=== PATIENT | female | born 1945 | race Caucasian/White ===

== ENCOUNTER 2021-03-16 16:31 | Emergency (ER) | payer MEDICARE, OTHER ==
[~2021-03-16] VITALS: Ht 152.4 cm; Wt 49.2 kg
[2021-03-16 16:58] VITALS: BP 164/73
--- NOTE | 2021-03-16 17:19 | EKG ---
[address] [address] Test Date: 2021-03-16 Test Time: 16:53:25 Pat Name: VIPIN DE SANTIAGO Department: Room: Gender: F Box Shook Patcher: FLEX : 1945 Requested By: JI HERNANDEZ Order Number: [id number] Reading MD: Ash Pascal MD Measurements Intervals [place] Rate: 92 P: 50 AL: 164 QRS: -71 QRSD: 92 T: 62 QT: 342 QTc: 428 Interpretive Statements SINUS RHYTHM ABNORMAL LEFT AXIS DEVIATION LEFT ANTERIOR FASCICULAR BLOCK QRS(T) CONTOUR ABNORMALITY CONSISTENT WITH ANTEROSEPTAL INFARCT PROBABLY OLD ABNORMAL ECG Electronically Signed On 03-17-2021 9:02:07 CDT by Ash Pascal MD
[2021-03-16 17:51] LABS: BASO # 0.1 x10^3/uL (0.0-0.2); BASO % 1 % (0-3); EOS # 0.1 x10^3/uL (0.0-0.7); EOS % 1 % (0-3); HEMATOCRIT 38.2 % (36.0-47.0); HEMOGLOBIN 12.6 g/dL (12.0-15.5); LYMPH % 17 % (24-48); MEAN CORPUSCULAR HEMOGLOBIN 27 pg (25-35); MEAN CORPUSCULAR HGB CONC 33 g/dL (31-37); MEAN CORPUSCULAR VOLUME 83 fL (79-100); MONO # 0.4 x10^3/uL (0.0-1.1); MONO % 7 % (0-9); NEUT # 4.3 x10^3uL (1.8-7.7); NEUT % 73 % (31-73); PLATELET COUNT 218 x10^3/uL (140-400); RED BLOOD COUNT 4.63 x10^6/uL (3.50-5.40); RED CELL DISTRIBUTION WIDTH 15.8 % (11.5-14.5); WHITE BLOOD COUNT 5.8 x10^3/uL (4.0-11.0)
[2021-03-16 17:58] LABS: CALCIUM 8.7 mg/dL (8.5-10.1); CREATININE 0.8 mg/dL (0.6-1.0); GFR 69.7; POTASSIUM 3.6 mmol/L (3.5-5.1)
[2021-03-16 18:04] LABS: ALBUMIN 3.6 g/dL (3.4-5.0); ALBUMIN/GLOBULIN RATIO 1.1 (1.0-1.7); TOTAL BILIRUBIN 0.3 mg/dL (0.2-1.0)
--- NOTE | 2021-03-16 18:29 | PHYS DOC ---
Past History Past Surgical History: No Surgical History (JI HERNANDEZ APRN) General Adult EDM: Chief Complaint: ALTERED MENTAL STATUS HPI: HPI: Patient is a 76-year-old female who presents with brother for medical clearance. Brother states "she is not sleeping at night and has had numerous falls". Patient has history of MR and cerebral palsy. Denies SI or HI or aggressive behavior. "Dr. Madrid is her PCP who is also the director at [facility], he said she has to have a medical clearance prior to being placed in a [facility]". Brother states that he is unable to take care of her any longer. (JI HERNANDEZ APRN) Review of Systems: Review of Systems: Constitutional: Denies fever or chills Eyes: Denies change in visual acuity HENT: Denies nasal congestion or sore throat Respiratory: Denies cough or shortness of breath Cardiovascular: Denies chest pain or edema GI: Denies abdominal pain, nausea, vomiting, bloody stools or diarrhea : Denies dysuria Musculoskeletal: Denies back pain or joint pain Integument: Denies rash Neurologic: Denies headache, focal weakness or sensory changes Endocrine: Denies polyuria or polydipsia Lymphatic: Denies swollen glands Psychiatric: Denies depression or anxiety (JI HERNANDEZ APRN) Allergies: Allergies: Allergies Coded Allergies Type Severity Reaction Last Updated Verified No Known Drug Allergies 03/16/21 No (JI HERNANDEZ APRN) Physical Exam: PE: Constitutional: Well developed, well nourished, no acute distress, non-toxic appearance. [] HENT: Normocephalic, atraumatic, bilateral external ears normal, oropharynx moist, no oral exudates, nose normal. [] Eyes: PERRLA, EOMI, conjunctiva normal, no discharge. [] Neck: Normal range of motion, no tenderness, supple, no stridor. [] Cardiovascular:Heart rate regular rhythm, no murmur [] Lungs & Thorax: Bilateral breath sounds clear to auscultation [] Abdomen: Bowel sounds normal, soft, no tenderness, no masses, no pulsatile masses. [] Skin: Warm, dry, no erythema, no rash. [] Back: No tenderness, no CVA tenderness. [] Extremities: No tenderness, no cyanosis, no clubbing, ROM intact, no edema. [] Neurologic: Alert and oriented X 3, normal motor function, normal sensory function, no focal deficits noted. [] Psychologic: Affect normal, judgement normal, mood normal. [] (JI HERNANDEZ APRN) Current Patient Data: Labs: Laboratory Tests Test 03/16/21 17:25 White Blood Count 5.8 x10^3/uL (4.0-11.0) Red Blood Count 4.63 x10^6/uL (3.50-5.40) Hemoglobin 12.6 g/dL (12.0-15.5) Hematocrit 38.2 % (36.0-47.0) Mean Corpuscular Volume 83 fL (79-100) Mean Corpuscular Hemoglobin 27 pg (25-35) Mean Corpuscular Hemoglobin Concent 33 g/dL (31-37) Red Cell Distribution Width 15.8 % (11.5-14.5) H Platelet Count 218 x10^3/uL (140-400) Neutrophils (%) (Auto) 73 % (31-73) Lymphocytes (%) (Auto) 17 % (24-48) L Monocytes (%) (Auto) 7 % (0-9) Eosinophils (%) (Auto) 1 % (0-3) Basophils (%) (Auto) 1 % (0-3) Neutrophils # (Auto) 4.3 x10^3uL (1.8-7.7) Lymphocytes # (Auto) 1.0 x10^3/uL (1.0-4.8) Monocytes # (Auto) 0.4 x10^3/uL (0.0-1.1) Eosinophils # (Auto) 0.1 x10^3/uL (0.0-0.7) Basophils # (Auto) 0.1 x10^3/uL (0.0-0.2) Sodium Level 140 mmol/L (136-145) Potassium Level 3.6 mmol/L (3.5-5.1) Chloride Level 103 mmol/L (98-107) Carbon Dioxide Level 29 mmol/L (21-32) Anion Gap 8 (6-14) Blood Urea Nitrogen 23 mg/dL (7-20) H Creatinine 0.8 mg/dL (0.6-1.0) Estimated GFR (Cockcroft-Gault) 69.7 BUN/Creatinine Ratio 29 (6-20) H Glucose Level 106 mg/dL (70-99) H Calcium Level 8.7 mg/dL (8.5-10.1) Total Bilirubin 0.3 mg/dL (0.2-1.0) Aspartate Amino Transferase (AST) 17 U/L (15-37) Alanine Aminotransferase (ALT) 30 U/L (14-59) Alkaline Phosphatase 67 U/L (46-116) Total Protein 7.0 g/dL (6.4-8.2) Albumin 3.6 g/dL (3.4-5.0) Albumin/Globulin Ratio 1.1 (1.0-1.7) Vital Signs: Vital Signs Date Time Temp Pulse Resp B/P (MAP) Pulse Ox O2 Delivery O2 Flow Rate FiO2 03/16/21 16:58 97.7 94 20 164/73 96 Room Air (JI HERNANDEZ APRN) EKG: EKG: Sinus rhythm. Heart rate 92 bpm. [] (JI HERNANDEZ APRN) Radiology/Procedures: Radiology/Procedures: [] (JI HERNANDEZ APRN) Heart Score: C/O Chest Pain: No Risk Factors: Risk Factors: DM, Current or recent (<one month) smoker, HTN, HLP, family histo ry of CAD, obesity. Risk Scores: Score 0 - 3: 2.5% MACE over next 6 weeks - Discharge Home Score 4 - 6: 20.3% MACE over next 6 weeks - Admit for Clinical Observation Score 7 - 10: 72.7% MACE over next 6 weeks - Early Invasive Strategies (JI HERNANDEZ APRN) Course & Med Decision Making: Course & Med Decision Making Pertinent Labs and Imaging studies reviewed. (See chart for details) [] 76-year-old female presents for medical clearance for admission to [facility]. Brother states that patient has had multiple falls recently and trouble with insomnia. Denies being on any medication to help with insomnia. All labs unremarkable. EKG shows sinus rhythm. Heart rate 92 bpm hemodynamically stable. UA positive for nitrates and leuks. Sending patient home on Keflex to treat UTI. Yajaira from [facility] team spoke with brother and patient. Patient is not qualified for [facility]. Yajaira from [facility] team created a safety plan for patient. Explained to brother patient was medically cleared, but not eligible for [facility]. Patient given copy of patient labs and safety plan to provide to PCP, Dr. Madrid.Brother needs to call [facility] and Dr. Madrid to get patient placed at [facility] Patient given trazodone prior to discharge to help with insomnia. (JI HERNANDEZ APRN) Course & Med Decision Making Did not see or evaluate patient. Did not discuss patient with RN FIRST ASSISTANT. Agree with RN FIRST ASSISTANT's work-up and disposition per note. (LONG NEWBERRY MD) Dragon Disclaimer: Dragtyrel Disclaimer: This electronic medical record was generated, in whole or in part, using a voice recognition dictation system. (JI HERNANDEZ APRN) Departure Departure: Impression: Primary Impression: Medical clearance for psychiatric admission Disposition: HOME / SELF CARE / HOMELESS Condition: STABLE Referrals: ERA MADRID MD (PCP) Patient Instructions: Medical Screening Exam Additional Instructions: You were seen in the emergency room for medical clearance. Unfortunately, your sister is not eligible for admission to [facility]. But she is medically cleared and able to be admitted by Dr. Madrid to a nursing care facility. Please call Dr. Madrid to discuss further. I am providing you with labs and safety plan that was created while you were in the emergency room from our PAT team. You were also treated with fosfomycin for a UTI. I am also giving you 1 dose of trazodone prior to discharge to help with insomnia for tonight. EMERGENCY DEPARTMENT GENERAL DISCHARGE INSTRUCTIONS Thank you for coming to [facility] (ED) today and trusting us with you care. We trust that you had a positivie experience in our Emergency Department. If you wish to speak to the department management, you may call the director at [phone]. YOUR FOLLOW UP INSTRUCTIONS ARE FOLLOWS: 1. Do you have a private Doctor? If you do not have a private doctor, please ask for a resource list of physicians or clinics that may be able to assist you with follow up care. 2. The Emergency Physician has interpreted your x-rays. The X-Ray specialist will also review them. If there is a change in the findings, you will be notified in 48 hours when at all possible. 3. A lab test or culture has been done, your results will be reviewed and you will be notified if you need a change in treatment. ADDITIONAL INSTRUCTIONS AND INFORMATION: 1. Your care today has been supervised by a physician who is specially trained in emergency care. Many problems require more than one evaluation for a complete diagnosis and treatment. We recommend that you schedule your follow up appointment as recommended to ensure complete treatment of you illness or injury. If you are unable to obtain follow up care and continue to have a problem, or if your condition worsens, we recommend that you return to the ED. 2. We are not able to safely determine your condition over the phone nor are we able to give sound medical advice over the phone. For these safety reasons, if you call for medical advice we will ask you to come to the ED for further evaluation. 3. If you have any questions regarding these discharge instructions please call the ED at [phone]. SAFETY INFORMATION: In the interest of safety, wellness, and injury prevention; we encourage you to wear your sealbelt, if you smoke; quite smoking, and we encourage family to use a protective helmet for bicycling and other sporting events that present an increased risk for head injury. IF YOUR SYMPTOMS WORSEN OR NEW SYMPTOMS DEVELOP, OR YOU HAVE CONCERNS ABOUT YOUR CONDITION; OR IF YOUR CONDITION WORSENS WHILE YOU ARE WAITING FOR YOUR FOLLOW UP APPOINTMENT; EITHER CONTACT YOUR PRIMARY CARE DOCTOR, THE PHYSICIAN WHOSE NAME AND NUMBER YOU WERE GIVEN, OR RETURN TO THE ED IMMEDIATELY. JI HERNANDEZ APRN Mar 16, 2021 18:29 LONG NEWBERRY MD Mar 16, 2021 23:33
[2021-03-16 18:32] LABS: BILIRUBIN,URINE NEG (NEG); CLARITY,URINE CLOUDY; COLOR,URINE YELLOW; GLUCOSE,URINE NEG (NEG); NITRITE,URINE POS (NEG); UROBILINOGEN,URINE 0.2 mg/dL (0.2 mg/dL)
[2021-03-16 18:33] LABS: BACTERIA,URINE MANY /HPF (0-FEW); WBC,URINE >40 /HPF (0-4)
[2021-03-16 18:34] LABS: SQUAMOUS EPITHELIAL CELL,UR MANY /LPF
[2021-03-16] MEDS: FOSFOMYCIN TROMETHAMINE 3 GM PACKET PO ONE (19:25)
[2021-03-16] MEDS: traZODone 50 MG TABLET. PO ONE (19:25)
== END 2021-03-16 19:28 | disposition home or self-care (01) ==
LOC: ER 16:31
DX: G47.00 Insomnia, unspecified (principal); Z13.30 Encounter for screening examination for mental health and behavioral disorders, unspecified; Z20.822 Contact with and (suspected) exposure to COVID-19
CPT/HCPCS: 36415; 80053; 81001; 85025; 87086; 87426; 93005; 99284; C9803; U0003

== ENCOUNTER 2021-09-06 07:30 | Emergency (ER) | payer MEDICARE, OTHER ==
[~2021-09-06] VITALS: Ht 152.4 cm; Wt 48.6 kg
--- NOTE | 2021-09-06 07:39 | PHYS DOC ---
Past History Past Surgical History: No Surgical History Alcohol Use: None Adult General Chief Complaint Chief Complaint: ALTERED MENTAL STATUS HPI HPI Patient is a 76 year old female who presents with head injury. Patient is referred to this emergency department today from the alf where she normally resides. [facility] staff had concern that the patient seemed to be acting differently compared to normal. She reportedly did not sleep over the last 2 nights. Also states that she had a fall 3 days ago where she sustained minor injury to the back of the head. At baseline, the patient has developmental delay. No immediate history is available from her. She denies pain. Review of Systems Review of Systems No review of systems is available as the patient cannot answer these questions. All other systems were reviewed and found to be within normal limits, except as documented in this note. Allergies Allergies Allergies Coded Allergies Type Severity Reaction Last Updated Verified No Known Drug Allergies 03/16/21 No Physical Exam Physical Exam Constitutional: Well developed, well nourished female in no HENT: minor abrasion and hematoma of the scalp over the superior occipital area. bilateral external ears normal, TM's normal, oropharynx moist, no oral exudates, nose normal Eyes: PERRLA, EOMI, conjunctiva normal Neck: Normal range of motion, no tenderness Cardiovascular:Heart rate regular rhythm Lungs & Thorax: Bilateral breath sounds clear to auscultation Abdomen: Bowel sounds normal, soft, no tenderness Skin: Warm, dry, no erythema, no rash. no trauma other than noted above. Skin over back and sacral area is normal Back: No tenderness Extremities: No visible trauma. No pain with firm palpation of all long bones or passive ROM across all major joints Neurologic: Alert and oriented to name only. Moves all extremities. protecting airway. no facial asymmetry. Psychologic: unclear baseline but she is awake, alert, answering simple questions. EKG EKG EKG completed and interpreted by ER physician. No STEMI is present. Heart rate is 92. Radiology/Procedures Radiology/Procedures [] Heart Score C/O Chest Pain: No HEART Score for Chest Pain: HEART Score for Chest Pain Response (Comments) Value History Slighlty/Non-Suspicious 0 ECG Normal 0 Total 0 Risk Factors: Risk Factors: DM, Current or recent (<one month) smoker, HTN, HLP, family history of CAD, obesity. Risk Scores: Risk Factors: DM, Current or recent (<one month) smoker, HTN, HLP, family history of CAD, obesity. Course & Med Decision Making Course & Med Decision Making Pertinent Labs and Imaging studies reviewed. (See chart for details) 07:35: Ms. Lawson is seen and examined on arrival to her room. Arrives via EMS. Minor scalp trauma which is reportedly from several days earlier. Otherwise normal physical examination. [facility] staff reports change in her mental status and labs, EKG, CT ordered. Will obtain UA sample via striaght cath. 08:35: All results are reviewed. Patient has no acute findings on her imaging. She does have significant pyuria. [facility] staff reports she had history of UTI. Today, she is given Rocephin [address] her on Macrobid. Only available urine culture was from March 2021 and was polymicrobial. She is stable for return to the alf today. EKG normal. Troponin not elevated. There is a family member at the bedside who is her DPOA. All of his questions were answered and he is agreeable to plan of care. Dragon Disclaimer Dragon Disclaimer This electronic medical record was generated, in whole or in part, using a voice recognition dictation system. Departure Departure: Impression: Primary Impression: UTI (urinary tract infection) Disposition: HOME / SELF CARE / HOMELESS Condition: GOOD Referrals: ERA ASHBY MD (PCP) Patient Instructions: Urinary Tract Infection Scripts Nitrofurantoin Monohyd/M-Cryst (MACROBID 100 MG CAPSULE) 100 Mg Capsule 1 CAP PO BID for 7 Days, #14 CAP 0 Refills Prov: MICHELLE ABDUL DO 09/06/21 MICHELLE ABDUL DO Sep 06, 2021 07:39
[2021-09-06 08:06] VITALS: BP 145/71
[2021-09-06 08:06] LABS: BASO # 0.1 x10^3/uL (0.0-0.2); BASO % 1 % (0-3); EOS % 1 % (0-3); HEMATOCRIT 36.2 % (36.0-47.0); HEMOGLOBIN 11.7 g/dL (12.0-15.5); LYMPH % 15 % (24-48); MEAN CORPUSCULAR HEMOGLOBIN 28 pg (25-35); MEAN CORPUSCULAR HGB CONC 32 g/dL (31-37); MEAN CORPUSCULAR VOLUME 87 fL (79-100); MONO # 0.5 x10^3/uL (0.0-1.1); MONO % 7 % (0-9); NEUT # 5.3 x10^3uL (1.8-7.7); NEUT % 77 % (31-73); PLATELET COUNT 200 x10^3/uL (140-400); RED BLOOD COUNT 4.18 x10^6/uL (3.50-5.40); RED CELL DISTRIBUTION WIDTH 15.6 % (11.5-14.5); WHITE BLOOD COUNT 6.9 x10^3/uL (4.0-11.0)
[2021-09-06 08:17] LABS: CALCIUM 8.1 mg/dL (8.5-10.1); CREATININE 0.8 mg/dL (0.6-1.0); GFR 69.7; POTASSIUM 3.6 mmol/L (3.5-5.1)
[2021-09-06 08:22] LABS: BACTERIA,URINE MANY /HPF (0-FEW); CLARITY,URINE CLEAR; COLOR,URINE YELLOW; GLUCOSE,URINE NEG (NEG); NITRITE,URINE POS (NEG); SQUAMOUS EPITHELIAL CELL,UR MOD /LPF; UROBILINOGEN,URINE 0.2 mg/dL (0.2 mg/dL)
[2021-09-06 08:23] LABS: WBC,URINE >40 /HPF (0-4)
--- NOTE | 2021-09-06 08:27 | RAD ---
Exam Date: 09/06/2021 8:[address] HEAD AND C-SPINE WO Indication: Reason: fall, occipital hematoma / Spl. Instructions: / History: . One or more of the following dose reduction techniques were utilized: *Automated exposure control (AEC) *Adjustment of mA and/or kV according to patient size *Use of iterative reconstruction technique *CT scan done according to ALARA, or ALARA/IMAGE GENTLY EXAMINATION: CT OF THE HEAD WITHOUT CONTRAST INDICATION: Trauma, head injury, headache; TECHNIQUE: Noncontrast helical axial CT images of the head were obtained. FINDINGS: The ventricles and sulci are normal for the patient's stated age. There is no evidence of acute int racranial hemorrhage, extra-axial collection, mass effect, midline shift, or acute territorial infarc t. No lesion of the skull base or the calvarium is seen. The visualized paranasal sinuses, mastoid ai r cells, and orbits are normal in appearance. IMPRESSION: No evidence for acute intracranial abnormality. EXAMINATION: CT OF THE CERVICAL SPINE WITHOUT CONTRAST Clinical Indication: Cervical spine pain after trauma Technique: Thin cut helical axial CT images through the cervical spine were obtained without contrast on a multi-detector CT scanner. Source data was then reconstructed into sagittal and coronal planes. Findings: Motion artifact limits evaluation. Alignment is maintained without spondylolisthesis. Vertebral body heights are maintained without acute fracture. Multilevel degenerative changes are not ed. No significant prevertebral soft tissue swelling is demonstrated. No severe osseous central canal stenosis is seen. Impression: No evidence of acute cervical spine fracture or subluxation. Electronically signed by: Tyshawn Rodriguez MD (09/06/2021 8:24 AM) [id number]
--- NOTE | 2021-09-06 08:31 | EKG ---
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
[2021-09-06] MEDS ORDERED: IV NORMAL SALINE 50ML 50 ML ONE (08:35)
[2021-09-06] MEDS ORDERED: cefTRIAXone SODIUM 1 GM VIAL ONE (08:35)
[2021-09-06] MEDS ORDERED: NITR100C62 PO (08:37)
[2021-09-06] MEDS ORDERED: LIDOCAINE 2%/EPI 1:100,000 20 ML VIAL. ONE (08:42)
[2021-09-06] MEDS ORDERED: LIDOCAINE 2%/EPI 1:100,000 20 ML VIAL. IJ ONE (09:00)
== END 2021-09-06 09:50 | disposition home or self-care (01) ==
LOC: ER 07:30
DX: S01.01XA Laceration without foreign body of scalp, initial encounter (principal); N39.0 Urinary tract infection, site not specified; W18.39XA Other fall on same level, initial encounter; Y93.89 Activity, other specified; Y92.89 Other specified places as the place of occurrence of the external cause; Y99.8 Other external cause status
CPT/HCPCS: 12001; 36415; 70450; 72125; 80048; 81001; 84484; 85025; 87077; 87086; 87186; 93005; 96365; 99285; J0696

== ENCOUNTER 2021-09-08 02:37 | Emergency (ER) | payer MEDICARE, OTHER ==
[~2021-09-08] VITALS: Ht 152.4 cm; Wt 49.0 kg
[~2021-09-08 02:37] MED LIST: NITR100C62 PO
--- NOTE | 2021-09-08 02:47 | PHYS DOC ---
Past History Additional Past Medical Histor: cerebral palsy Past Surgical History: Other Alcohol Use: None Adult General Chief Complaint Chief Complaint: MECHANICAL FALL HPI HPI Patient is a 76-year-old female with a past medical history of dementia and other comorbidities who [facility] at a prison who presents via EMS after a fall. This is her second such fall in the last couple of days. Her first visit she had a UTI and was treated with a dose of Rocephin and some Macrobid. She had some sutures placed in posterior scalp. This was a witnessed fall at the prison with no loss of consciousness. Denies any recent travels, fevers, known illnesses, abdominal pain, nausea, vomiting, diarrhea. States they picked her up off the floor and put her in a chair. Review of Systems Review of Systems Review of systems otherwise unremarkable except noted in HPI Allergies Allergies Allergies Coded Allergies Type Severity Reaction Last Updated Verified No Known Drug Allergies 03/16/21 No Physical Exam Physical Exam Constitutional: Well developed, well nourished, no acute distress, non-toxic appearance. [] HENT: 1 cm linear superficial laceration on the right parietal scalp, bleeding controlled, bilateral external ears normal, no hemotympanum, oropharynx moist, no oral exudates, nose normal. [] Eyes: PERRLA, EOMI, conjunctiva normal, no discharge. [] Neck: Normal range of motion, no tenderness, supple, no stridor. [] Cardiovascular:Heart rate regular rhythm, no murmur [] Lungs & Thorax: No respiratory distress Abdomen: soft, appears to be tender generally in the abdomen with no rebound or guarding,, no masses, no pulsatile masses. [] Skin: Warm, dry, no erythema, no rash. [] Back: No apparent midline tenderness, step-offs, bruising or deformities noted Extremities: Neurovascular exam intact, no tenderness, no bruising or swelling, no cyanosis, no clubbing, ROM intact, no edema. [] Neurologic: Alert and oriented to baseline per EMS and facility staff, extremity, response to sensation of touch on all extremities, face and neck, no obvious focal neurologic deficits EKG EKG [] Radiology/Procedures Radiology/Procedures [] Heart Score C/O Chest Pain: No Risk Factors: Risk Factors: DM, Current or recent (<one month) smoker, HTN, HLP, family history of CAD, obesity. Risk Scores: Risk Factors: DM, Current or recent (<one month) smoker, HTN, HLP, family history of CAD, obesity. Course & Med Decision Making Course & Med Decision Making Patient is a 76-year-old female who presents from her prison after a fall Vital signs notable for hypertension. Physical exam noted above. Given pain medicine. Repeated Rocephin dose for UTI. Scalp laceration cleaned with hydrogen peroxide. Sealed with Dermabond. CT of the head and neck with no acute new osseous abnormalities CT of the abdomen and pelvis with no new acute findings. Given EMS/facility a copy of the CT report and advised to have a follow-up CT in 3 months and to make primary care physician aware. Patient with prescription for nitrofurantoin for continued management of her urinary tract infection. Started on Augmentin for possible infectious process in the lungs however likely more inflammatory/mucous plugging with neoplasm and possibility. Patient stable for discharge back to prison. [] Dragon Disclaimer Dragon Disclaimer This electronic medical record was generated, in whole or in part, using a voice recognition dictation system. Departure Departure: Impression: Primary Impression: Fall Additional Impressions: Scalp laceration Respiratory infection Abnormal CT scan, chest Disposition: HOME / SELF CARE / HOMELESS Condition: STABLE Referrals: ERA ASHBY MD (PCP) Patient Instructions: Laceration Care, Adult Additional Instructions: Thank you for coming to the emergency department tonight and allowing us to take care of you. Please read all the attached information carefully to go over things we discussed. Please use Tylenol, ibuprofen and ice as needed for this patient's pain needs. Please be sure to continue her prescription given to her at her first ED visit for her urinary tract infection and make sure she stays well-hydrated as older people lose the thirst mechanism. Please be sure she eats at least 3 nutritious meals a day and try to get in a One-A-Day vitamin. Please be sure to have her follow-up with her primary care physician as soon as possible to discuss recent ED visits and care at the nursing facility. Please be sure she takes her Augmentin daily for possible respiratory infection. Disc ussions need to be had about the appropriateness of her current living situation being allowed to fall twice over 1 to 2 days requiring emergency department visits. Please return her to the emergency department immediately with new or concerning symptoms. Scripts Amoxicillin/Potassium Clav (AMOX TR-K CLV 875-125 MG TAB) 1 Each Tablet 1 TAB PO BID for respiratory infxn for 10 Days, #20 TAB Prov: LONG NEWBERRY MD 09/08/21 Problem Qualifiers LONG NEWBERRY MD Sep 08, 2021 02:47
[2021-09-08] MEDS ORDERED: cefTRIAXone IM 1 GM VIAL IM ONE (03:00)
--- NOTE | 2021-09-08 04:13 | RAD ---
EXAM: CT head and cervical spine without contrast INDICATION: Fall, hit head COMPARISON: CT head and C-spine 09/06/2021 TECHNIQUE: Axial CT imaging through the head and cervical spine without intravenous contrast. Sagitta l and coronal reformats were obtained. One or more of the following individualized dose reduction techniques were utilized for this examinat ion: 1. Automated exposure control 2. Adjustment of the mA and/or kV according to patient size 3. Use of iterative reconstruction technique. FINDINGS: CT head: The ventricles and sulci are prominent. Madden-white matter differentiation is maintained. No intracran ial hemorrhage, acute infarct, or mass lesion. Skull and scalp are intact. Paranasal sinuses and mast oids are clear. Globes and orbits are intact. CT cervical spine: No acute fracture. Alignment is normal. There is moderate disc space narrowing at C5-C6 and C6-C7, mi ld disc space narrowing elsewhere. Small anterior osteophytes, greatest at C4-C5 and C5-C6. There is thoracic kyphosis. Unchanged mild T1 and T2 compression deformities. Mild T3 compression deformity. T here is moderate to severe right and moderate left foraminal narrowing due to uncovertebral joint pro liferation C5-C6 and C6-C7. Prevertebral soft tissue is normal. There are calcifications in the carot id bulbs. Lung apices are clear. IMPRESSION: 1. No acute intracranial abnormality. 2. No acute osseous abnormality cervical spine. 3. Mild compression deformities of T1, T2, and T3, age indeterminate but may be old. The T1 and T2 co mpression deformities are unchanged from CT C-spine 09/06/2021. The T3 vertebral body was not included in the [id number] on that exam. Electronically signed by: Laura Dutta MD (09/08/2021 4:11 AM) [facility]
--- NOTE | 2021-09-08 04:35 | RAD ---
EXAM: CT CHEST, ABDOMEN, AND PELVIS WITHOUT CONTRAST INDICATION: Fall, chest and abdomen tenderness, difficulty holding still COMPARISON: None TECHNIQUE: Helical CT imaging performed of the chest, abdomen and pelvis without the use of intraveno us contrast. Sagittal and coronal reformats were obtained. One or more of the following individualized dose reduction techniques were utilized for this examinat ion: 1. Automated exposure control 2. Adjustment of the mA and/or kV according to patient size 3. Use of iterative reconstruction technique. FINDINGS: CHEST: Thyroid gland and thoracic inlet: Normal. Heart and great vessels: The heart is normal in size. There are coronary artery calcifications. Mediastinum and roney: No lymphadenopathy. There is a calcified hilar lymph node. Mild esophageal wall thickening. Lungs and pleura: There is a nodule in the right middle lobe measuring 1.0 cm (image 53, series 2. Ad jacent small tree-in-bud nodules and possible mucous plugging (image 55, series 2). There is a calcif ied granuloma in the right lower lobe. No pleural effusion or pneumothorax. Chest wall and axillae: No axillary lymphadenopathy. Bones: Mild compression deformities of T1 and T2, age indeterminate but may be chronic. No definite T 3 compression deformity. No acute fracture.. ABDOMEN AND PELVIS: Liver: Normal. Gallbladder/Biliary Tree: Surgical changes of cholecystectomy. Bile ducts are normal. Pancreas: Normal. Spleen: Normal. Adrenal Glands: Mild left adrenal gland thickening. Right adrenal gland is normal.. Kidneys/Ureters/Bladder: The kidneys are lobulated suspicious for underlying poly-cystic kidney disea se, not well evaluated on noncontrast exam. Some of the cysts on the left containing layering calcifi cations. There is left nephrolithiasis with a few small calculi. No hydronephrosis. Ureters and bladd er are normal. Reproductive Organs: There are multiple partially calcified fibroids throughout the uterus. No adnexa l mass. Stomach, small bowel, and colon: Stomach is normal. There is no small bowel obstruction. There is sig moid diverticulosis. The appendix is not clearly identified. Vasculature: No aortic aneurysm. Mild calcified aortoiliac atherosclerosis. Lymph Nodes: No lymphadenopathy. Peritoneum and retroperitoneum: No free fluid or free air. Bones: No acute osseous abnormality. Mild dextroscoliosis of the thoracolumbar spine. Other: Small fat-containing umbilical hernia containing an surgical staple. IMPRESSION: 1. No acute abnormality of the chest, abdomen, or pelvis. 2. Mild compression deformities of T1 and T2, age indeterminate but favored to be chronic. 3. 1 cm nodule in the right middle lobe. This may be infectious/inflammatory as there are some adjac ent small tree-in-bud nodules and possible mucous plugging, however neoplasm is possible. Recommend f ollow-up CT in 3 months to ensure stability. PET/CT or biopsy could also be obtained. 4. Suspected polycystic kidney disease. Left nephrolithiasis. 5. Multiple calcified fibroids in the uterus. Electronically signed by: Laura Dutta MD (09/08/2021 4:32 AM) [facility]
[2021-09-08] MEDS ORDERED: AMOX1TAB11 PO (04:41)
[2021-09-08] MEDS ORDERED: KETOROLAC 15 MG/ML VIAL. IM ONE (05:00)
[2021-09-08 05:10] VITALS: BP 122/62
== END 2021-09-08 05:15 | disposition home or self-care (01) ==
LOC: ER 02:37
DX: S01.01XD Laceration without foreign body of scalp, subsequent encounter (principal); J98.8 Other specified respiratory disorders; R93.1 Abnormal findings on diagnostic imaging of heart and coronary circulation; W18.39XD Other fall on same level, subsequent encounter
CPT/HCPCS: 12001; 70450; 71250; 72125; 74176; 96372; 99285; J0696; J1885; J3010

== ENCOUNTER 2021-10-10 15:26 | Inpatient (IN) | payer MEDICARE, OTHER ==
[~2021-10-10] VITALS: Ht 152.4 cm; Wt 49.4 kg
[~2021-10-10 15:26] MED LIST changes: +AMOX1TAB11 PO
[2021-10-10] MEDS ORDERED: NYST15PO9 TP (16:15)
[2021-10-10] MEDS ORDERED: DIVA125T PO (16:15)
[2021-10-10] MEDS ORDERED: LORA-254 PO (16:15)
[2021-10-10] MEDS ORDERED: DULA0.75 SQ (16:15)
[2021-10-10] MEDS ORDERED: ROSUVASTATIN CA10 MG PO (16:15)
[2021-10-10] MEDS ORDERED: METF500T16 PO (16:15)
[2021-10-10] MEDS ORDERED: LISI40TA6 PO (16:15)
[2021-10-10] MEDS ORDERED: METHYL SALICYLATE/MENTHOL TOPICAL OINTMENT 57GM TUBE. TP PRN (16:30)
[2021-10-10] MEDS ORDERED: MAG HYDROX/AL HYDROX/SIMETH 30 ML ORAL.SUSP PO PRN (16:30)
[2021-10-10] MEDS ORDERED: MAGNESIUM HYDROXIDE 2,400 MG/30 ML ORAL.SUSP. PO PRN (16:30)
[2021-10-10] MEDS ORDERED: NYSTATIN TOPICAL POWDER 15GM BOTTLE. TP PRN (16:45)
[2021-10-10 16:46] VITALS: BP 122/75
[2021-10-10] MEDS: metFORMIN 500 MG TABLET PO SCH (17:28)
[2021-10-10] MEDS: DIVALPROEX SODIUM 125 MG TABLET.DR. PO SCH (21:08)
[2021-10-10] MEDS: ATORVASTATIN CALCIUM 20 MG TABLET PO SCH (21:08)
--- NOTE | 2021-10-10 21:10 | EKG ---
[address] [address] Test Date: 2021-10-10 Test Time: 19:43:46 Pat Name: VIPIN DE SANTIAGO Department: Room: [address] [place] [address] Gender: F [employer] Supervisor: FRANCESCO : 1945 Requested By: RAMOS HORTA Order Number: [id number] Reading MD: Measurements Intervals [place] Rate: 96 P: 59 NV: 142 QRS: -80 QRSD: 86 T: 72 QT: 338 QTc: 433 Interpretive Statements SINUS RHYTHM ABNORMAL LEFT AXIS DEVIATION R-S TRANSITION ZONE IN V LEADS DISPLACED TO THE LEFT LEFT ANTERIOR FASCICULAR BLOCK T ABNORMALITY IN HIGH LATERAL LEADS ABNORMAL ECG RI6.01 No previous ECG available for comparison
[2021-10-10 21:18] LABS: BASO % 1 % (0-3); EOS # 0.1 x10^3/uL (0.0-0.7); EOS % 1 % (0-3); HEMOGLOBIN 11.5 g/dL (12.0-15.5); LYMPH # 1.3 x10^3/uL (1.0-4.8); LYMPH % 16 % (24-48); MEAN CORPUSCULAR HEMOGLOBIN 28 pg (25-35); MEAN CORPUSCULAR HGB CONC 33 g/dL (31-37); MEAN CORPUSCULAR VOLUME 86 fL (79-100); MONO # 0.4 x10^3/uL (0.0-1.1); MONO % 6 % (0-9); NEUT # 6.2 x10^3uL (1.8-7.7); NEUT % 77 % (31-73); PLATELET COUNT 203 x10^3/uL (140-400); RED BLOOD COUNT 4.09 x10^6/uL (3.50-5.40)
[2021-10-10 21:36] LABS: ALBUMIN 3.4 g/dL (3.4-5.0); ALBUMIN/GLOBULIN RATIO 0.9 (1.0-1.7); ALK PHOS 91 U/L (46-116); ALT (SGPT) 14 U/L (14-59); ANION GAP 10 (6-14); AST (SGOT) 12 U/L (15-37); BLOOD UREA NITROGEN 15 mg/dL (7-20); BUN/CREATININE RATIO 17 (6-20); CALCIUM 8.7 mg/dL (8.5-10.1); CARBON DIOXIDE 27 mmol/L (21-32); CHLORIDE 102 mmol/L (98-107); CREATININE 0.9 mg/dL (0.6-1.0); GFR 60.9; GLUCOSE 142 mg/dL (70-99); MAGNESIUM 1.3 mg/dL (1.8-2.4); POTASSIUM 4.1 mmol/L (3.5-5.1); SODIUM 139 mmol/L (136-145); TOTAL BILIRUBIN 0.4 mg/dL (0.2-1.0); TOTAL PROTEIN 7.1 g/dL (6.4-8.2)
--- NOTE | 2021-10-10 21:45 | PDOC ---
Exam Note: Zana Note: Please also refer to the separate dictated note~for this date of service dictated separately.~Patient seen individually. Discussed the patient with Nursing staff reviewed the chart.~Reviewed interim history and current functioning. Reviewed vital signs,~Labs/ Radiology~and current medications noted below. Continue current treatment with the changes noted in the dictated addendum note Assessment: Vital Signs/I&O: Vital Signs Date Time Temp Pulse Resp B/P (MAP) Pulse Ox O2 Delivery O2 Flow Rate FiO2 10/10/21 16:46 99.0 94 18 122/75 (91) 95 Labs: Laboratory Tests Test 10/10/21 21:06 White Blood Count 8.0 x10^3/uL (4.0-11.0) Red Blood Count 4.09 x10^6/uL (3.50-5.40) Hemoglobin 11.5 g/dL (12.0-15.5) L Hematocrit 35.0 % (36.0-47.0) L Mean Corpuscular Volume 86 fL (79-100) Mean Corpuscular Hemoglobin 28 pg (25-35) Mean Corpuscular Hemoglobin Concent 33 g/dL (31-37) Red Cell Distribution Width 16.0 % (11.5-14.5) H Platelet Count 203 x10^3/uL (140-400) Neutrophils (%) (Auto) 77 % (31-73) H Lymphocytes (%) (Auto) 16 % (24-48) L Monocytes (%) (Auto) 6 % (0-9) Eosinophils (%) (Auto) 1 % (0-3) Basophils (%) (Auto) 1 % (0-3) Neutrophils # (Auto) 6.2 x10^3uL (1.8-7.7) Lymphocytes # (Auto) 1.3 x10^3/uL (1.0-4.8) Monocytes # (Auto) 0.4 x10^3/uL (0.0-1.1) Eosinophils # (Auto) 0.1 x10^3/uL (0.0-0.7) Basophils # (Auto) 0.0 x10^3/uL (0.0-0.2) Current Medications: Meds: Current Medications Medications (Trade) Dose Ordered Sig/Maeve Route PRN Reason Start Time Stop Time Status Last Admin Dose Admin Divalproex Sodium (Depakote) 125 mg BID PO 10/10/21 21:00 10/10/21 21:08 Metformin HCl (Glucophage) 500 mg BIDWMEALS PO 10/10/21 17:00 10/10/21 17:28 Atorvastatin Calcium (Lipitor) 40 mg QHS PO 10/10/21 21:00 10/10/21 21:08 I have reviewed the current psychotropics carefully including drug interactions. Risk benefit ratio favors no change other than as noted in my dictated progress note. RAMOS HORTA MD Oct 10, 2021 21:45
[2021-10-10 21:46] LABS: VAL ACID 40 mcg/mL (50-100)
[2021-10-11] MEDS: ACETAMINOPHEN 325 MG TABLET PO PRN ×4 (01:27→22:35)
[2021-10-11] MEDS: LORazepam 1 MG TABLET PO PRN ×3 (01:27→14:02)
[2021-10-11 06:07] VITALS: BP 119/77
[2021-10-11] MEDS: DIVALPROEX SODIUM 125 MG TABLET.DR. PO SCH (07:47)
[2021-10-11] MEDS: LISINOPRIL 20 MG TABLET PO SCH (07:47)
[2021-10-11] MEDS: metFORMIN 500 MG TABLET PO SCH ×2 (07:47→17:23)
[2021-10-11] MEDS: NON FORMULARY ITEM (Dulaglutide (Trulicity) 0.75 MG) SQ SCH (15:22)
[2021-10-11 16:09] VITALS: BP 115/62
--- NOTE | 2021-10-11 16:16 | RAD ---
Exam: Chest one view INDICATION: Shortness of breath TECHNIQUE: Frontal view of the chest Comparisons: CT 09/08/2021 FINDINGS: The cardiomediastinal silhouette and pulmonary vessels are within normal limits. Subtle right basilar airspace disease. No pleural effusion. IMPRESSION: Subtle right basilar airspace disease may represent atelectasis or developing infectious process. Electronically signed by: Cari Blackwell MD (10/11/2021 4:14 PM) [facility]
--- NOTE | 2021-10-11 16:18 | RAD ---
Exam: Abdomen one view INDICATION: Abdominal pain TECHNIQUE: Supine view of the abdomen Comparisons: CT 09/08/2021 FINDINGS: Air and stool are noted throughout the colon to level the rectum in a nonobstructive bowel gas patter n. No suspicious masses or calcifications. Cholecystectomy clips are noted. Calcified fibroids and phleb oliths are noted in the pelvis. Mild osteopenia with multilevel spondylotic change in the lumbar spine. IMPRESSION: Nonobstructive bowel gas pattern. Electronically signed by: Cari Blackwell MD (10/11/2021 4:16 PM) [facility]
[2021-10-11 18:57] LABS: BACTERIA,URINE MANY /HPF (0-FEW); CLARITY,URINE CLOUDY; COLOR,URINE YELLOW; GLUCOSE,URINE NEG (NEG); NITRITE,URINE NEG (NEG); SQUAMOUS EPITHELIAL CELL,UR FEW /LPF; WBC,URINE 20-40 /HPF (0-4)
[2021-10-11 20:23] LABS: CHOLESTEROL/HDL RATIO 2.6; THYROID STIM HORMONE (TSH) 1.918 uIU/mL (0.358-3.740)
[2021-10-11] MEDS: DIVALPROEX SODIUM 250 MG TABLET.DR. PO SCH ×2 (20:29→22:36)
[2021-10-11] MEDS: ATORVASTATIN CALCIUM 20 MG TABLET PO SCH ×2 (20:29→22:35)
--- NOTE | 2021-10-11 21:06 | HP ---
DATE OF SERVICE: 10/11/2021 ADMIT DATE: 10/10/2021 PSYCHIATRIC ADMISSION HISTORY/EVALUATION This is a late entry, date of service 10/10, covers elements not covered in my initial note 10/10. I met with the patient on the evening of 10/10. Discussed with nursing staff, reviewed the chart. Previously, I discussed the patient with Sonia Stevens, brownfield program coordinator, and gathered historical information from [facility] in [place], [place]. IDENTIFYING DATA: The patient is a 76-year-old female referred to us by Dr. Madrid, her primary care physician, at the above facility on account of significant agitation, aggression, disruptive behaviors, marked mood lability within the context of progressively worsening dementia and intellectual disability. She had sleep and appetite changes. Behaviors were deemed unmanageable at the facility. She had failed outpatient psychiatric intervention resulting in this referral. CHIEF COMPLAINT: "No." The patient is not very verbally interactive and overall functioning consistent with her intellectual disability unspecified. HISTORY OF PRESENT ILLNESS: The patient has a history of dementia, Alzheimer's, vascular type, within the context of her intellectual disability. She has been increasingly agitated, aggressive, disruptive, paranoid, psychotic with sleep and appetite changes, and unmanageable at the facility. No clear history of bipolar disorder. She has also appeared somewhat depressed and aggressive as part of this. PAST PSYCHIATRIC HISTORY: As above. MEDICAL HISTORY: Type 2 diabetes mellitus, hyperlipidemia, hypertension, chronic constipation. ALLERGIES: None. CODE STATUS: DNR. DIET: Diabetic, mechanical soft, thin liquids because she has no teeth or dentures. Takes medications whole. Ambulates with walker with assistance and wheelchair. CURRENT PSYCHOTROPICS: Depakote 125 mg b.i.d., Ativan 1 mg q. 6 hours p.r.n. anxiety and Ativan p.r.n. FAMILY HISTORY: Noncontributory. SOCIAL HISTORY: No alcohol, drug abuse, physical, sexual, elder abuse history is noted. She is not known to be a perpetrator. REACTION TO HOSPITALIZATION: The patient oblivious of it. REVIEW OF SYSTEMS: Ambulation impaired. No CV, , pulmonary, eye, ENT system symptoms on review. Reliability poor. MENTAL STATUS EXAM: The patient is oriented to herself. Insight, judgment, recent and remote memory, attention, concentration, fund of knowledge, poor consistent with her diagnosis. IMPRESSION: Major neurocognitive disorder, Alzheimer, vascular with delusion, depression, behavioral disturbance, intellectual disability, impulse control disorder, rule out major depressive disorder, anxiety disorder, unspecified. Rest as above. PLAN: Admit to Geropsychiatry Unit at [facility]. I will see the patient daily individually from a psychiatric standpoint, medical followup, Dr. Stearns/Dr. Goss. Continue the patient on current psychotropics. Observe baseline, adjust as clinically indicated. ESTIMATED LENGTH OF STAY: 10-12 days. DISPOSITION PLANS: Back to snf when stable. IVIS DR: Phil TID: [id number]
--- NOTE | 2021-10-11 21:59 | PDOC ---
Exam Note: Zana Note: Please also refer to the separate dictated note~for this date of service dictated separately.~Patient seen individually. Discussed the patient with Nursing staff reviewed the chart.~Reviewed interim history and current functioning. Reviewed vital signs,~Labs/ Radiology~and current medications noted below. Continue current treatment with the changes noted in the dictated addendum note Assessment: Vital Signs/I&O: Vital Signs Date Time Temp Pulse Resp B/P (MAP) Pulse Ox O2 Delivery O2 Flow Rate FiO2 10/11/21 16:09 98.7 89 18 115/62 (79) 93 Room Air I & O 10/10/21 10/10/21 10/11/21 15:00 23:00 07:00 Intake Total 480 ml Balance 480 ml Labs: Laboratory Tests Test 10/11/21 07:44 10/11/21 17:20 Glucose (Fingerstick) 123 mg/dL (70-99) H Urine Collection Type Unknown Urine Color Yellow Urine Clarity Cloudy Urine pH 6.5 Urine Specific [place] 1.025 Urine Protein Neg (NEG-TRACE) Urine Glucose (UA) Neg mg/dL (NEG) Urine Ketones (Stick) Neg mg/dL (NEG) Urine Blood Trace (NEG) Urine Nitrite Neg (NEG) Urine Bilirubin Neg (NEG) Urine Urobilinogen Dipstick 1.0 mg/dL (0.2 mg/dL) Urine Leukocyte Esterase Mod (NEG) Urine RBC 1-2 /HPF (0-2) Urine WBC 20-40 /HPF (0-4) Urine Squamous Epithelial Cells Few /LPF Urine Transitional Epithelial Cells Occ /LPF Urine Bacteria Many /HPF (0-FEW) Current Medications: Meds: Laboratory Tests Test 10/11/21 07:44 10/11/21 17:20 Glucose (Fingerstick) 123 mg/dL Urine Collection Type Unknown Urine Color Yellow Urine Clarity Cloudy Urine pH 6.5 Urine Specific [place] 1.025 Urine Protein Neg Urine Glucose (UA) Neg mg/dL Urine Ketones (Stick) Neg mg/dL Urine Blood Trace Urine Nitrite Neg Urine Bilirubin Neg Urine Urobilinogen Dipstick 1.0 mg/dL Urine Leukocyte Esterase Mod Urine RBC 1-2 /HPF Urine WBC 20-40 /HPF Urine Squamous Epithelial Cells Few /LPF Urine Transitional Epithelial Cells Occ /LPF Urine Bacteria Many /HPF Current Medications Medications (Trade) Dose Ordered Sig/Maeve Route PRN Reason Start Time Stop Time Status Last Admin Dose Admin Acetaminophen (Tylenol) 650 mg PRN Q6HRS PRN PO MILD PAIN / TEMP > 100.3'F 10/10/21 16:30 10/11/21 14:04 Multi-Ingredient Ointment (Analgesic [place]) 1 freeman PRN QID PRN TP MUSCLE PAIN 10/10/21 16:30 Al Hydroxide/Mg Hydroxide (Mylanta Plus Xs) 15 ml PRN AFTMEALHC PRN PO DYSPEPSIA 10/10/21 16:30 Magnesium Hydroxide (Milk Of Magnesia) 2,400 mg PRN QHS PRN PO CONSTIPATION 10/10/21 16:30 Divalproex Sodium (Depakote) 125 mg BID PO 10/10/21 21:00 10/11/21 16:59 DC 10/11/21 07:47 Lorazepam (Ativan) 1 mg PRN Q6HRS PRN PO ANXIETY 10/10/21 16:45 10/11/21 16:59 DC 10/11/21 14:02 Metformin HCl (Glucophage) 500 mg BIDWMEALS PO 10/10/21 17:00 10/11/21 17:23 Nystatin (Nystop) 1 freeman PRN Q12HR PRN TP RASH 10/10/21 16:45 Non-Formulary Medication (Dulaglutide (Trulicity)) 0.75 mg WEEKLY SQ 10/11/21 15:00 10/11/21 15:22 Lisinopril (Prinivil) 40 mg DAILY PO 10/11/21 09:00 10/11/21 07:47 Atorvastatin Calcium (Lipitor) 40 mg QHS PO 10/10/21 21:00 10/11/21 20:29 Divalproex Sodium (Depakote) 250 mg BID PO 10/11/21 21:00 10/11/21 20:29 Lorazepam (Ativan) 0.5 mg QIDPRN PRN PO ANXIETY 10/11/21 17:00 Olanzapine (ZyPREXA ZYDIS) 2.5 mg PRN Q2HR PRN PO PSYCHOSIS 10/11/21 17:00 Current Medications Medications (Trade) Dose Ordered Sig/Maeve Route PRN Reason Start Time Stop Time Status Last Admin Dose Admin Non-Formulary Medication (Dulaglutide (Trulicity)) 0.75 mg WEEKLY SQ 10/11/21 15:00 10/11/21 15:22 Lisinopril (Prinivil) 40 mg DAILY PO 10/11/21 09:00 10/11/21 07:47 Divalproex Sodium (Depakote) 250 mg BID PO 10/11/21 21:00 10/11/21 20:29 I have reviewed the current psychotropics carefully including drug interactions. Risk benefit ratio favors no change other than as noted in my dictated progress note. Diagnosis: Problems: (1) Major neurocognitive disorder (2) Dementia in Alzheimer's disease with delusions (3) Dementia in Alzheimer's disease with depression (4) Dementia of the Alzheimer's type with early onset with behavioral disturbance (5) Dementia, vascular, with delusions (6) Dementia, vascular, with depression (7) Impulse control disorder, unspecified (8) Anxiety disorder, unspecified (9) Intellectual disability RAMOS HORTA MD Oct 11, 2021 21:59
--- NOTE | 2021-10-11 23:29 | CONS ---
DATE OF CONSULTATION: 10/11/2021 ATTENDING PHYSICIAN: Dr. Horta. We are asked to see this patient for medical consultation. HISTORY OF PRESENT ILLNESS: The patient is a 76-year-old female who has significant intellectual challenge. She has been institutionalized in a care home. Her mold yard supervisor has been her 97-year-old mother and a brother, who shares a power of sports attorney. She cannot give much history. She was admitted then with increasing agitation and impulse control disorder. She is currently living at the [facility], the new name after the place was brought is now called [facility]. PAST MEDICAL HISTORY: Gleaned from the chart. She has a medical history of hypertension, type 2 diabetes, intellectual disability, and chronic constipation. ALLERGIES: She has no known drug allergies. CURRENT MEDICATIONS: Include Depakote, Trulicity, lisinopril, lorazepam p.r.n., metformin, Macrodantin, nystatin, and Crestor. SOCIAL HISTORY: She is a nonsmoker, nondrinker. FAMILY HISTORY: Unobtainable due to the patient's dementia. REVIEW OF SYSTEMS: Unobtainable. In examining her, there is a mass around the left nipple, which is palpated. PHYSICAL EXAMINATION: GENERAL: When I saw her, this is pleasantly confused, intellectually challenged female. VITAL SIGNS: Initial vital signs showed blood pressure 119/77, temperature 97.2 degrees Fahrenheit, oxygen saturation 98% on room air. HEENT: Head is without trauma. Pupils are reactive. Sclerae nonicteric. Oropharynx clear. NECK: Supple, no bruits. LUNGS: Good breath sounds. CARDIOVASCULAR: Showed regular heart tones. ABDOMEN: Soft. EXTREMITIES: Without edema. NEUROLOGIC FINDINGS: Pleasantly confused. BREASTS: I did examine the mass at the left nipple. There is a hard indurated area, which is freely movable. This is not fixed to any tissues. Certainly, malignancy cannot be ruled out. I suspect this is a benign cyst. PERTINENT LABORATORY STUDIES: Her hemoglobin is 11.5 g/dL, white count 8000. Electrolytes within normal range. Her creatinine is 0.9 mg percent. Nonfasting blood sugar 123 mg/dL. Liver panel transaminases were all normal. Depakote level was measured at 40. ASSESSMENT: 1. This 76-year-old female has been admitted for impulse control disorder. She has underlying dementia. 2. Intellectual challenge at with a significantly decreased mentation. 3. Incidental finding of a mass in the left nipple. Whether this is a benign or malignant remains to be seen. 4. Type 2 diabetes. RECOMMENDATIONS: 1. She is stable from a medical standpoint. I reviewed her medicines. 2. I think that we should notify her power of sports attorney, specifically, her brother to let him know about the incidental finding. This lesion in the left nipple can be removed surgically as an outpatient. They can make arrangements to see who the care home recommend for outpatient surgical procedure for resection of said mass. 3. Thank you again for asking me to see this patient for medical clearance. We should gladly follow along during her inpatient stay. MEJIA DR: Paulette TID: [id number] CC: RAMOS HORTA MD
[2021-10-12 06:04] VITALS: BP 113/70
[2021-10-12] MEDS: metFORMIN 500 MG TABLET PO SCH ×2 (08:21→17:31)
[2021-10-12] MEDS: LISINOPRIL 20 MG TABLET PO SCH (08:23)
[2021-10-12] MEDS: DIVALPROEX SODIUM 250 MG TABLET.DR. PO SCH ×2 (08:23→20:23)
--- NOTE | 2021-10-12 10:07 | PDOC ---
Exam Note: Zana Note: This note is a late entry for 10/11/2021 covers elements not covered in my initial note. Subjective: The patient was seen individually on 10/11/2021, discussed and reviewed the chart with Azul SOTO. She slept 6 hours previous night. Overall the patient has had some constipation though last bowel movement was probably about 48 hours ago. Her belly has been bloated. Dr. Goss ordered an abdomen x- ray. Valproic acid level is 40. Review of Systems: Ambulation impaired, in wheelchair. No CV, , pulmonary, eye system symptoms on review. Reliability poor. Mental Status Exam: The patient is oriented to herself. Insight and judgment, recent and remote memory, attention and concentration, fund of knowledge is poor consistent with her diagnoses. Laboratory Data: Reviewed. Impression: Major neurocognitive disorder, Alzheimer, vascular with delusion, depression, behavioral disturbance. Anxiety disorder unspecified. Impulse control disorder unspecified. Major depressive disorder. Plan: Maintain rest of the psychotropics for now. Reviewed drug interactions, risk-benefit ratio. Valproic acid level is 40 on Depakote 125 mg b.i.d. We will increase to 250 mg b.i.d. Check CBC, CMP, valproic acid level, ammonia level in 3 days. Add Zyprexa 2.5 mg q.2h. p.r.n. psychosis, agitation, max 7.5 mg in 24 hours and she is on Ativan 1 mg q.6h. p.r.n. We will reduce to 0.5 mg q.4.h. p.r.n. anxiety, max 2 mg in 24 hours. We will make further adjustments as clinically indicated. Assessment: Vital Signs/I&O: Vital Signs Date Time Temp Pulse Resp B/P (MAP) Pulse Ox O2 Delivery O2 Flow Rate FiO2 10/12/21 08:23 84 113/70 10/12/21 06:04 97.5 16 96 10/11/21 16:09 Room Air I & O 10/11/21 10/11/21 10/12/21 15:00 23:00 07:00 Intake Total 580 ml 240 ml Balance 580 ml 240 ml Labs: Laboratory Tests Test 10/11/21 17:20 10/12/21 07:47 Urine Collection Type Unknown Urine Color Yellow Urine Clarity Cloudy Urine pH 6.5 Urine Specific [place] 1.025 Urine Protein Neg (NEG-TRACE) Urine Glucose (UA) Neg mg/dL (NEG) Urine Ketones (Stick) Neg mg/dL (NEG) Urine Blood Trace (NEG) Urine Nitrite Neg (NEG) Urine Bilirubin Neg (NEG) Urine Urobilinogen Dipstick 1.0 mg/dL (0.2 mg/dL) Urine Leukocyte Esterase Mod (NEG) Urine RBC 1-2 /HPF (0-2) Urine WBC 20-40 /HPF (0-4) Urine Squamous Epithelial Cells Few /LPF Urine Transitional Epithelial Cells Occ /LPF Urine Bacteria Many /HPF (0-FEW) Glucose (Fingerstick) 84 mg/dL (70-99) Current Medications: Meds: Current Medications Medications (Trade) Dose Ordered Sig/Maeve Route PRN Reason Start Time Stop Time Status Last Admin Dose Admin Non-Formulary Medication (Dulaglutide (Trulicity)) 0.75 mg WEEKLY SQ 10/11/21 15:00 10/11/21 15:22 Divalproex Sodium (Depakote) 250 mg BID PO 10/11/21 21:00 10/12/21 08:23 I have reviewed the current psychotropics carefully including drug interactions. Risk benefit ratio favors no change other than as noted in my dictated progress note. Diagnosis: Problems: (1) Impulse control disorder, unspecified (2) Anxiety disorder, unspecified (3) Intellectual disability (4) Dementia, vascular, with depression (5) Dementia, vascular, with delusions (6) Dementia in Alzheimer's disease with depression (7) Dementia in Alzheimer's disease with delusions (8) Dementia of the Alzheimer's type with early onset with behavioral disturbance (9) Major neurocognitive disorder RAMOS HORTA MD Oct 12, 2021 10:07
[2021-10-12] MEDS: LORazepam 1 MG TABLET PO PRN ×2 (11:13→20:26)
[2021-10-12] MEDS: ACETAMINOPHEN 325 MG TABLET PO PRN (11:14)
[2021-10-12 16:08] VITALS: BP 100/64
--- NOTE | 2021-10-12 16:29 | RAD ---
EXAMINATION: XR RIBS 2 VIEWS LT CLINICAL HISTORY: Chest pain and possible rib fracture. TECHNIQUE: XR RIBS 2 VIEWS LT COMPARISON: None FINDINGS/ IMPRESSION: No evidence of acute left rib fracture. No evidence of pneumothorax or definite pleural effusion on l imited evaluation of the chest. Aortic atherosclerotic calcification. Old calcified granulomatous disease. Degenerative changes and d extroconvex curvature of the thoracolumbar spine. Electronically signed by: Yonatan Harrington DO (10/12/2021 4:27 PM) [id number]
[2021-10-12] MEDS: ATORVASTATIN CALCIUM 20 MG TABLET PO SCH (20:24)
[2021-10-12 20:52] LABS: CLARITY,URINE CLOUDY; COLOR,URINE YELLOW; GLUCOSE,URINE NEG (NEG)
[2021-10-12 20:53] LABS: BACTERIA,URINE MANY /HPF (0-FEW); NITRITE,URINE POS (NEG); RBC,URINE OCC /HPF (0-2); SQUAMOUS EPITHELIAL CELL,UR FEW /LPF; WBC,URINE >40 /HPF (0-4)
--- NOTE | 2021-10-12 21:56 | PDOC ---
Exam Note: Zana Note: Please also refer to the separate dictated note~for this date of service dictated separately.~Patient seen individually. Discussed the patient with Nursing staff reviewed the chart.~Reviewed interim history and current functioning. Reviewed vital signs,~Labs/ Radiology~and current medications noted below. Continue current treatment with the changes noted in the dictated addendum note Assessment: Vital Signs/I&O: Vital Signs Date Time Temp Pulse Resp B/P (MAP) Pulse Ox O2 Delivery O2 Flow Rate FiO2 10/12/21 16:08 97.1 96 20 100/64 (76) 94 10/11/21 16:09 Room Air I & O 10/11/21 10/11/21 10/12/21 15:00 23:00 07:00 Intake Total 580 ml 240 ml Balance 580 ml 240 ml Labs: Laboratory Tests Test 10/12/21 07:47 10/12/21 20:25 Glucose (Fingerstick) 84 mg/dL (70-99) Urine Collection Type Unknown Urine Color Yellow Urine Clarity Cloudy Urine pH 6.0 Urine Specific [place] 1.020 Urine Protein 30 mg/dl (NEG-TRACE) Urine Glucose (UA) Neg mg/dL (NEG) Urine Ketones (Stick) Trace mg/dL (NEG) Urine Blood Trace (NEG) Urine Nitrite Pos (NEG) Urine Bilirubin Neg (NEG) Urine Urobilinogen Dipstick 1.0 mg/dL (0.2 mg/dL) Urine Leukocyte Esterase Mod (NEG) Urine RBC Occ /HPF (0-2) Urine WBC >40 /HPF (0-4) Urine Squamous Epithelial Cells Few /LPF Urine Bacteria Many /HPF (0-FEW) Current Medications: Meds: Laboratory Tests Test 10/12/21 07:47 10/12/21 20:25 Glucose (Fingerstick) 84 mg/dL Urine Collection Type Unknown Urine Color Yellow Urine Clarity Cloudy Urine pH 6.0 Urine Specific [place] 1.020 Urine Protein 30 mg/dl Urine Glucose (UA) Neg mg/dL Urine Ketones (Stick) Trace mg/dL Urine Blood Trace Urine Nitrite Pos Urine Bilirubin Neg Urine Urobilinogen Dipstick 1.0 mg/dL Urine Leukocyte Esterase Mod Urine RBC Occ /HPF Urine WBC >40 /HPF Urine Squamous Epithelial Cells Few /LPF Urine Bacteria Many /HPF Current Medications Medications (Trade) Dose Ordered Sig/Maeve Route PRN Reason Start Time Stop Time Status Last Admin Dose Admin Acetaminophen (Tylenol) 650 mg PRN Q6HRS PRN PO MILD PAIN / TEMP > 100.3'F 10/10/21 16:30 10/12/21 11:14 Multi-Ingredient Ointment (Analgesic [place]) 1 freeman PRN QID PRN TP MUSCLE PAIN 10/10/21 16:30 Al Hydroxide/Mg Hydroxide (Mylanta Plus Xs) 15 ml PRN AFTMEALHC PRN PO DYSPEPSIA 10/10/21 16:30 Magnesium Hydroxide (Milk Of Magnesia) 2,400 mg PRN QHS PRN PO CONSTIPATION 10/10/21 16:30 10/12/21 20:26 Divalproex Sodium (Depakote) 125 mg BID PO 10/10/21 21:00 10/11/21 16:59 DC 10/11/21 07:47 Lorazepam (Ativan) 1 mg PRN Q6HRS PRN PO ANXIETY 10/10/21 16:45 10/11/21 16:59 DC 10/11/21 14:02 Metformin HCl (Glucophage) 500 mg BIDWMEALS PO 10/10/21 17:00 10/12/21 17:31 Nystatin (Nystop) 1 freeman PRN Q12HR PRN TP RASH 10/10/21 16:45 Non-Formulary Medication (Dulaglutide (Trulicity)) 0.75 mg WEEKLY SQ 10/11/21 15:00 10/11/21 15:22 Lisinopril (Prinivil) 40 mg DAILY PO 10/11/21 09:00 10/12/21 08:23 Atorvastatin Calcium (Lipitor) 40 mg QHS PO 10/10/21 21:00 10/12/21 20:24 Divalproex Sodium (Depakote) 250 mg BID PO 10/11/21 21:00 10/12/21 20:23 Lorazepam (Ativan) 0.5 mg QIDPRN PRN PO ANXIETY 10/11/21 17:00 10/12/21 20:26 Olanzapine (ZyPREXA ZYDIS) 2.5 mg PRN Q2HR PRN PO PSYCHOSIS 10/11/21 17:00 Duloxetine HCl (Cymbalta) 30 mg DAILY PO 10/13/21 09:00 I have reviewed the current psychotropics carefully including drug interactions. Risk benefit ratio favors no change other than as noted in my dictated progress note. Diagnosis: Problems: (1) Impulse control disorder, unspecified (2) Anxiety disorder, unspecified (3) Intellectual disability (4) Dementia, vascular, with depression (5) Dementia, vascular, with delusions (6) Dementia in Alzheimer's disease with depression (7) Dementia in Alzheimer's disease with delusions (8) Dementia of the Alzheimer's type with early onset with behavioral disturbance (9) Major neurocognitive disorder RAMOS HORTA MD Oct 12, 2021 21:56
[2021-10-12 23:08] LABS: THYROXINE 7.8 ug/dL (4.5-12.0)
[2021-10-13] MEDS: LORazepam 1 MG TABLET PO PRN ×2 (00:32→20:02)
[2021-10-13 04:57] LABS: HEMOGLOBIN A1C 5.7 % (4.8-5.6)
[2021-10-13 06:33] VITALS: BP 107/68
[2021-10-13] MEDS: DULoxetine HCL 30 MG CAPSULE.DR PO SCH (08:41)
[2021-10-13] MEDS: metFORMIN 500 MG TABLET PO SCH ×2 (08:41→17:30)
[2021-10-13] MEDS: LISINOPRIL 20 MG TABLET PO SCH (08:41)
[2021-10-13] MEDS: DIVALPROEX SODIUM 250 MG TABLET.DR. PO SCH ×2 (08:41→20:03)
--- NOTE | 2021-10-13 09:12 | PDOC ---
Exam Note: Zana Note: This note is a late entry for 10/12/2021 covers elements not covered in my initial note. Subjective: The patient was seen individually on 10/12/2021, discussed and reviewed the chart with Hunter SOTO. She slept 6-1/2 hours previous night. The patient has had marked mood lability, crying in bed, has had some pain on the left side and Dr. Stearns is working it up. Repeat x-ray has been done. She might have a rib fracture. She did receive Ativan 0.5 mg earlier, seemed to help her. She also appears depressed. Review of Systems: Ambulation impaired, in wheelchair. No CV, , pulmonary, eye system symptoms on review. Mental Status Exam: The patient is oriented to herself. I met with the patient in the hallway. She is in her wheelchair, head covering, yelling at the nursing staff, rather loud, persistent despite me trying to interact with her. Insight and judgment, recent and remote memory, attention and concentration, fund of knowledge is poor consistent with her diagnoses. Laboratory Data: Reviewed. Impression: Major neurocognitive disorder, Alzheimer, vascular with delusion, depression, behavioral disturbance. Anxiety disorder unspecified. Impulse control disorder unspecified. Intellectual disability. Plan: Maintain rest of the psychotropics for now. Reviewed drug interactions, risk-benefit ratio. Start Cymbalta 30 mg a day for her mood and depressive symptoms, Depakote is 250 mg b.i.d. increased yesterday and repeat labs level on 10/14 along with ammonia level. Adjust further as clinically indicated. Assessment: Vital Signs/I&O: Vital Signs Date Time Temp Pulse Resp B/P (MAP) Pulse Ox O2 Delivery O2 Flow Rate FiO2 10/13/21 08:41 93 107/68 10/13/21 06:33 97.6 16 94 10/11/21 16:09 Room Air I & O 10/12/21 10/12/21 10/13/21 15:00 23:00 07:00 Intake Total 340 ml 360 ml Balance 340 ml 360 ml Labs: Laboratory Tests Test 10/12/21 20:25 10/13/21 07:50 Urine Collection Type Unknown Urine Color Yellow Urine Clarity Cloudy Urine pH 6.0 Urine Specific [place] 1.020 Urine Protein 30 mg/dl (NEG-TRACE) Urine Glucose (UA) Neg mg/dL (NEG) Urine Ketones (Stick) Trace mg/dL (NEG) Urine Blood Trace (NEG) Urine Nitrite Pos (NEG) Urine Bilirubin Neg (NEG) Urine Urobilinogen Dipstick 1.0 mg/dL (0.2 mg/dL) Urine Leukocyte Esterase Mod (NEG) Urine RBC Occ /HPF (0-2) Urine WBC >40 /HPF (0-4) Urine Squamous Epithelial Cells Few /LPF Urine Bacteria Many /HPF (0-FEW) Glucose (Fingerstick) 91 mg/dL (70-99) Current Medications: Meds: Current Medications Medications (Trade) Dose Ordered Sig/Maeve Route PRN Reason Start Time Stop Time Status Last Admin Dose Admin Duloxetine HCl (Cymbalta) 30 mg DAILY PO 10/13/21 09:00 10/13/21 08:41 I have reviewed the current psychotropics carefully including drug interactions. Risk benefit ratio favors no change other than as noted in my dictated progress note. Diagnosis: Problems: (1) Impulse control disorder, unspecified (2) Anxiety disorder, unspecified (3) Intellectual disability (4) Dementia, vascular, with depression (5) Dementia, vascular, with delusions (6) Dementia in Alzheimer's disease with depression (7) Dementia in Alzheimer's disease with delusions (8) Dementia of the Alzheimer's type with early onset with behavioral disturbance (9) Major neurocognitive disorder RAMOS HORTA MD Oct 13, 2021 09:12
[2021-10-13 16:43] VITALS: BP 125/79
[2021-10-13] MEDS: fentaNYL 12MCG/HR 1 PATCH PATCH TD SCH (17:29)
[2021-10-13] MEDS: ATORVASTATIN CALCIUM 20 MG TABLET PO SCH (20:02)
--- NOTE | 2021-10-13 21:39 | PDOC ---
Exam Note: Zana Note: Please also refer to the separate dictated note~for this date of service dictated separately.~Patient seen individually. Discussed the patient with Nursing staff reviewed the chart.~Reviewed interim history and current functioning. Reviewed vital signs,~Labs/ Radiology~and current medications noted below. Continue current treatment with the changes noted in the dictated addendum note Assessment: Vital Signs/I&O: Vital Signs Date Time Temp Pulse Resp B/P (MAP) Pulse Ox O2 Delivery O2 Flow Rate FiO2 10/13/21 16:43 98.2 97 18 125/79 (94) 93 10/11/21 16:09 Room Air I & O 10/12/21 10/12/21 10/13/21 15:00 23:00 07:00 Intake Total 340 ml 360 ml Balance 340 ml 360 ml Labs: Laboratory Tests Test 10/13/21 07:50 Glucose (Fingerstick) 91 mg/dL (70-99) Current Medications: Meds: Laboratory Tests Test 10/13/21 07:50 Glucose (Fingerstick) 91 mg/dL Current Medications Medications (Trade) Dose Ordered Sig/Maeve Route PRN Reason Start Time Stop Time Status Last Admin Dose Admin Acetaminophen (Tylenol) 650 mg PRN Q6HRS PRN PO MILD PAIN / TEMP > 100.3'F 10/10/21 16:30 10/12/21 11:14 Multi-Ingredient Ointment (Analgesic [place]) 1 freeman PRN QID PRN TP MUSCLE PAIN 10/10/21 16:30 Al Hydroxide/Mg Hydroxide (Mylanta Plus Xs) 15 ml PRN AFTMEALHC PRN PO DYSPEPSIA 10/10/21 16:30 Magnesium Hydroxide (Milk Of Magnesia) 2,400 mg PRN QHS PRN PO CONSTIPATION 10/10/21 16:30 10/12/21 20:26 Divalproex Sodium (Depakote) 125 mg BID PO 10/10/21 21:00 10/11/21 16:59 DC 10/11/21 07:47 Lorazepam (Ativan) 1 mg PRN Q6HRS PRN PO ANXIETY 10/10/21 16:45 10/11/21 16:59 DC 10/11/21 14:02 Metformin HCl (Glucophage) 500 mg BIDWMEALS PO 10/10/21 17:00 10/13/21 17:30 Nystatin (Nystop) 1 freeman PRN Q12HR PRN TP RASH 10/10/21 16:45 Non-Formulary Medication (Dulaglutide (Trulicity)) 0.75 mg WEEKLY SQ 10/11/21 15:00 10/11/21 15:22 Lisinopril (Prinivil) 40 mg DAILY PO 10/11/21 09:00 10/13/21 08:41 Atorvastatin Calcium (Lipitor) 40 mg QHS PO 10/10/21 21:00 10/13/21 20:02 Divalproex Sodium (Depakote) 250 mg BID PO 10/11/21 21:00 10/13/21 20:03 Lorazepam (Ativan) 0.5 mg QIDPRN PRN PO ANXIETY 10/11/21 17:00 10/13/21 20:02 Olanzapine (ZyPREXA ZYDIS) 2.5 mg PRN Q2HR PRN PO PSYCHOSIS 10/11/21 17:00 10/12/21 23:22 Duloxetine HCl (Cymbalta) 30 mg DAILY PO 10/13/21 09:00 10/13/21 08:41 Fentanyl (Duragesic 12mcg/ Hr) 1 patch Q3DAYS TD 10/13/21 17:00 10/13/21 17:29 Current Medications Medications (Trade) Dose Ordered Sig/Maeve Route PRN Reason Start Time Stop Time Status Last Admin Dose Admin Duloxetine HCl (Cymbalta) 30 mg DAILY PO 10/13/21 09:00 10/13/21 08:41 Fentanyl (Duragesic 12mcg/ Hr) 1 patch Q3DAYS TD 10/13/21 17:00 10/13/21 17:29 I have reviewed the current psychotropics carefully including drug interactions. Risk benefit ratio favors no change other than as noted in my dictated progress note. Diagnosis: Problems: (1) Impulse control disorder, unspecified (2) Anxiety disorder, unspecified (3) Intellectual disability (4) Dementia, vascular, with depression (5) Dementia, vascular, with delusions (6) Dementia in Alzheimer's disease with depression (7) Dementia in Alzheimer's disease with delusions (8) Dementia of the Alzheimer's type with early onset with behavioral disturbance (9) Major neurocognitive disorder RAMOS HORTA MD Oct 13, 2021 21:39
[2021-10-14 06:37] VITALS: BP 134/73
[2021-10-14 07:40] LABS: BASO % 1 % (0-3); EOS # 0.1 x10^3/uL (0.0-0.7); EOS % 2 % (0-3); HEMATOCRIT 37.2 % (36.0-47.0); HEMOGLOBIN 12.2 g/dL (12.0-15.5); LYMPH # 1.1 x10^3/uL (1.0-4.8); LYMPH % 14 % (24-48); MEAN CORPUSCULAR HEMOGLOBIN 28 pg (25-35); MEAN CORPUSCULAR HGB CONC 33 g/dL (31-37); MEAN CORPUSCULAR VOLUME 86 fL (79-100); MONO # 0.5 x10^3/uL (0.0-1.1); MONO % 6 % (0-9); NEUT # 6.2 x10^3uL (1.8-7.7); NEUT % 79 % (31-73); PLATELET COUNT 220 x10^3/uL (140-400); RED BLOOD COUNT 4.32 x10^6/uL (3.50-5.40); RED CELL DISTRIBUTION WIDTH 15.7 % (11.5-14.5)
[2021-10-14 07:46] LABS: ALBUMIN 3.9 g/dL (3.4-5.0); ALBUMIN/GLOBULIN RATIO 1.2 (1.0-1.7); CALCIUM 9.2 mg/dL (8.5-10.1); GFR 53.9; POTASSIUM 4.8 mmol/L (3.5-5.1); TOTAL BILIRUBIN 0.7 mg/dL (0.2-1.0); TOTAL PROTEIN 7.1 g/dL (6.4-8.2)
[2021-10-14 07:53] LABS: VAL ACID 71 mcg/mL (50-100)
[2021-10-14] MEDS: DIVALPROEX SODIUM 250 MG TABLET.DR. PO SCH ×2 (07:57→20:44)
[2021-10-14] MEDS: DULoxetine HCL 30 MG CAPSULE.DR PO SCH (07:57)
[2021-10-14] MEDS: metFORMIN 500 MG TABLET PO SCH ×2 (07:57→17:39)
[2021-10-14] MEDS: ACETAMINOPHEN 325 MG TABLET PO PRN (07:57)
[2021-10-14] MEDS: LISINOPRIL 20 MG TABLET PO SCH (08:12)
[2021-10-14 15:47] VITALS: BP 105/67
[2021-10-14] MEDS: ATORVASTATIN CALCIUM 20 MG TABLET PO SCH (20:44)
--- NOTE | 2021-10-14 22:19 | PDOC ---
Exam Note: Zana Note: Please also refer to the separate dictated note~for this date of service dictated separately.~Patient seen individually. Discussed the patient with Nursing staff reviewed the chart.~Reviewed interim history and current functioning. Reviewed vital signs,~Labs/ Radiology~and current medications noted below. Continue current treatment with the changes noted in the dictated addendum note Assessment: Vital Signs/I&O: Vital Signs Date Time Temp Pulse Resp B/P (MAP) Pulse Ox O2 Delivery O2 Flow Rate FiO2 10/14/21 15:47 98.3 97 20 105/67 (80) 96 10/11/21 16:09 Room Air I & O 10/13/21 10/13/21 10/14/21 15:00 23:00 07:00 Intake Total 140 ml 120 ml Balance 140 ml 120 ml Labs: Laboratory Tests Test 10/14/21 07:07 10/14/21 07:27 White Blood Count 8.0 x10^3/uL (4.0-11.0) Red Blood Count 4.32 x10^6/uL (3.50-5.40) Hemoglobin 12.2 g/dL (12.0-15.5) Hematocrit 37.2 % (36.0-47.0) Mean Corpuscular Volume 86 fL (79-100) Mean Corpuscular Hemoglobin 28 pg (25-35) Mean Corpuscular Hemoglobin Concent 33 g/dL (31-37) Red Cell Distribution Width 15.7 % (11.5-14.5) H Platelet Count 220 x10^3/uL (140-400) Neutrophils (%) (Auto) 79 % (31-73) H Lymphocytes (%) (Auto) 14 % (24-48) L Monocytes (%) (Auto) 6 % (0-9) Eosinophils (%) (Auto) 2 % (0-3) Basophils (%) (Auto) 1 % (0-3) Neutrophils # (Auto) 6.2 x10^3uL (1.8-7.7) Lymphocytes # (Auto) 1.1 x10^3/uL (1.0-4.8) Monocytes # (Auto) 0.5 x10^3/uL (0.0-1.1) Eosinophils # (Auto) 0.1 x10^3/uL (0.0-0.7) Basophils # (Auto) 0.0 x10^3/uL (0.0-0.2) Sodium Level 142 mmol/L (136-145) Potassium Level 4.8 mmol/L (3.5-5.1) Chloride Level 103 mmol/L (98-107) Carbon Dioxide Level 29 mmol/L (21-32) Anion Gap 10 (6-14) Blood Urea Nitrogen 28 mg/dL (7-20) H Creatinine 1.0 mg/dL (0.6-1.0) Estimated GFR (Cockcroft-Gault) 53.9 BUN/Creatinine Ratio 28 (6-20) H Glucose Level 103 mg/dL (70-99) H Calcium Level 9.2 mg/dL (8.5-10.1) Total Bilirubin 0.7 mg/dL (0.2-1.0) Aspartate Amino Transferase (AST) 14 U/L (15-37) L Alanine Aminotransferase (ALT) 13 U/L (14-59) L Alkaline Phosphatase 95 U/L (46-116) Ammonia < 10 mcmol/L (11-34) L Total Protein 7.1 g/dL (6.4-8.2) Albumin 3.9 g/dL (3.4-5.0) Albumin/Globulin Ratio 1.2 (1.0-1.7) Valproic Acid Level 71 mcg/mL (50-100) Valproic Acid Last Dose Date 10/13/21 Valproic Acid Last Dose Time 2100 Glucose (Fingerstick) 101 mg/dL (70-99) H Current Medications: Meds: Laboratory Tests Test 10/14/21 07:07 10/14/21 07:27 White Blood Count 8.0 x10^3/uL Red Blood Count 4.32 x10^6/uL Hemoglobin 12.2 g/dL Hematocrit 37.2 % Mean Corpuscular Volume 86 fL Mean Corpuscular Hemoglobin 28 pg Mean Corpuscular Hemoglobin Concent 33 g/dL Red Cell Distribution Width 15.7 % Platelet Count 220 x10^3/uL Neutrophils (%) (Auto) 79 % Lymphocytes (%) (Auto) 14 % Monocytes (%) (Auto) 6 % Eosinophils (%) (Auto) 2 % Basophils (%) (Auto) 1 % Neutrophils # (Auto) 6.2 x10^3uL Lymphocytes # (Auto) 1.1 x10^3/uL Monocytes # (Auto) 0.5 x10^3/uL Eosinophils # (Auto) 0.1 x10^3/uL Basophils # (Auto) 0.0 x10^3/uL Sodium Level 142 mmol/L Potassium Level 4.8 mmol/L Chloride Level 103 mmol/L Carbon Dioxide Level 29 mmol/L Anion Gap 10 Blood Urea Nitrogen 28 mg/dL Creatinine 1.0 mg/dL Estimated GFR (Cockcroft-Gault) 53.9 BUN/Creatinine Ratio 28 Glucose Level 103 mg/dL Calcium Level 9.2 mg/dL Total Bilirubin 0.7 mg/dL Aspartate Amino Transf (AST/SGOT) 14 U/L Alanine Aminotransferase (ALT/SGPT) 13 U/L Alkaline Phosphatase 95 U/L Ammonia < 10 mcmol/L Total Protein 7.1 g/dL Albumin 3.9 g/dL Albumin/Globulin Ratio 1.2 Valproic Acid (Depakene) Level 71 mcg/mL Valproic Acid Last Dose Date 10/13/21 Valproic Acid Last Dose Time 2100 Glucose (Fingerstick) 101 mg/dL Current Medications Medications (Trade) Dose Ordered Sig/Maeve Route PRN Reason Start Time Stop Time Status Last Admin Dose Admin Acetaminophen (Tylenol) 650 mg PRN Q6HRS PRN PO MILD PAIN / TEMP > 100.3'F 10/10/21 16:30 10/14/21 07:57 Multi-Ingredient Ointment (Analgesic [place]) 1 freeman PRN QID PRN TP MUSCLE PAIN 10/10/21 16:30 Al Hydroxide/Mg Hydroxide (Mylanta Plus Xs) 15 ml PRN AFTMEALHC PRN PO DYSPEPSIA 10/10/21 16:30 Magnesium Hydroxide (Milk Of Magnesia) 2,400 mg PRN QHS PRN PO CONSTIPATION 10/10/21 16:30 10/12/21 20:26 Divalproex Sodium (Depakote) 125 mg BID PO 10/10/21 21:00 10/11/21 16:59 DC 10/11/21 07:47 Lorazepam (Ativan) 1 mg PRN Q6HRS PRN PO ANXIETY 10/10/21 16:45 10/11/21 16:59 DC 10/11/21 14:02 Metformin HCl (Glucophage) 500 mg BIDWMEALS PO 10/10/21 17:00 10/14/21 17:39 Nystatin (Nystop) 1 freeman PRN Q12HR PRN TP RASH 10/10/21 16:45 Non-Formulary Medication (Dulaglutide (Trulicity)) 0.75 mg WEEKLY SQ 10/11/21 15:00 10/11/21 15:22 Lisinopril (Prinivil) 40 mg DAILY PO 10/11/21 09:00 10/14/21 08:12 Atorvastatin Calcium (Lipitor) 40 mg QHS PO 10/10/21 21:00 10/14/21 20:44 Divalproex Sodium (Depakote) 250 mg BID PO 10/11/21 21:00 10/14/21 20:44 Lorazepam (Ativan) 0.5 mg QIDPRN PRN PO ANXIETY 10/11/21 17:00 10/13/21 20:02 Olanzapine (ZyPREXA ZYDIS) 2.5 mg PRN Q2HR PRN PO PSYCHOSIS 10/11/21 17:00 10/12/21 23:22 Duloxetine HCl (Cymbalta) 30 mg DAILY PO 10/13/21 09:00 10/14/21 07:57 Fentanyl (Duragesic 12mcg/ Hr) 1 patch Q3DAYS TD 10/13/21 17:00 10/13/21 17:29 I have reviewed the current psychotropics carefully including drug interactions. Risk benefit ratio favors no change other than as noted in my dictated progress note. Diagnosis: Problems: (1) Impulse control disorder, unspecified (2) Anxiety disorder, unspecified (3) Intellectual disability (4) Dementia, vascular, with depression (5) Dementia, vascular, with delusions (6) Dementia in Alzheimer's disease with depression (7) Dementia in Alzheimer's disease with delusions (8) Dementia of the Alzheimer's type with early onset with behavioral disturbance (9) Major neurocognitive disorder RAMOS HORTA MD Oct 14, 2021 22:19
[2021-10-15 06:08] VITALS: BP 133/75
[2021-10-15] MEDS: DIVALPROEX SODIUM 250 MG TABLET.DR. PO SCH ×3 (07:46→21:01)
[2021-10-15] MEDS: metFORMIN 500 MG TABLET PO SCH ×3 (07:46→17:23)
[2021-10-15] MEDS: LISINOPRIL 20 MG TABLET PO SCH ×2 (07:46→12:12)
[2021-10-15] MEDS: DULoxetine HCL 30 MG CAPSULE.DR PO SCH ×2 (07:46→12:12)
--- NOTE | 2021-10-15 10:24 | PDOC ---
Exam Note: Zana Note: This note is a late entry for 10/13/2021 covers elements not covered in my initial note. Subjective: The patient was reviewed at treatment team meeting individually in the morning on 10/13/2021 with Gerda Gates and Siri Acosta (hospice social worker), Nathalia, activity therapy, and Katherine SOTO, discussed and reviewed the chart. We discussed progress, diagnoses, psychotropic medications at length, discharge and after care plans. She was cared by her mother in the home till the mother turned 89 unable to care for the patient. At that time they were living in the brothers home. Since then she has been in nursing facility. Till age 16 she had gone to developmentally disabled school called [employer]. At times she puts herself on the floor and was found on the floor at shift change but no injuries noted. At times she becomes agitated and yelling out at times. We are following her labs level for the valproic acid and we will adjust as clinically indicated. She slept 6 hours previous night. Review of Systems: Ambulation impaired, in wheelchair. No CV, , pulmonary, eye system symptoms on review. Mental Status Exam: The patient is oriented to herself. Insight and judgment, recent and remote memory, attention and concentration, fund of knowledge is poor consistent with her diagnoses. Laboratory Data: Reviewed. Impression: Major neurocognitive disorder, Alzheimer, vascular with delusion, depression, behavioral disturbance. Anxiety disorder unspecified. Impulse control disorder unspecified. Intellectual disability. Plan: Maintain rest of the psychotropics for now. Reviewed drug interactions, risk-benefit ratio. We will check labs level in the morning of 10/14 and then adjust to reach therapeutic level. Maintain rest of the psychotropics unchanged. Assessment: Vital Signs/I&O: Vital Signs Date Time Temp Pulse Resp B/P (MAP) Pulse Ox O2 Delivery O2 Flow Rate FiO2 10/15/21 06:08 98.2 99 24 133/75 (94) 90 10/11/21 16:09 Room Air I & O 10/14/21 10/14/21 10/15/21 15:00 23:00 07:00 Intake Total 720 ml 600 ml Balance 720 ml 600 ml Labs: Laboratory Tests Test 10/15/21 07:45 Glucose (Fingerstick) 123 mg/dL (70-99) H Current Medications: I have reviewed the current psychotropics carefully including drug interactions. Risk benefit ratio favors no change other than as noted in my dictated progress note. Diagnosis: Problems: (1) Impulse control disorder, unspecified (2) Anxiety disorder, unspecified (3) Intellectual disability (4) Dementia, vascular, with depression (5) Dementia, vascular, with delusions (6) Dementia in Alzheimer's disease with depression (7) Dementia in Alzheimer's disease with delusions (8) Dementia of the Alzheimer's type with early onset with behavioral disturbance (9) Major neurocognitive disorder RAMOS HORTA MD Oct 15, 2021 10:24
[2021-10-15 12:11] VITALS: BP 133/75
[2021-10-15 16:35] VITALS: BP 106/63
[2021-10-15] MEDS: ATORVASTATIN CALCIUM 20 MG TABLET PO SCH (21:01)
[2021-10-15] MEDS: CEFDINIR 300 MG CAPSULE PO SCH (21:01)
--- NOTE | 2021-10-15 22:03 | PDOC ---
Exam Note: Zana Note: Please also refer to the separate dictated note~for this date of service dictated separately.~Patient seen individually. Discussed the patient with Nursing staff reviewed the chart.~Reviewed interim history and current functioning. Reviewed vital signs,~Labs/ Radiology~and current medications noted below. Continue current treatment with the changes noted in the dictated addendum note Assessment: Vital Signs/I&O: Vital Signs Date Time Temp Pulse Resp B/P (MAP) Pulse Ox O2 Delivery O2 Flow Rate FiO2 10/15/21 16:35 98.1 106 18 106/63 (77) 93 10/11/21 16:09 Room Air I & O 10/14/21 10/14/21 10/15/21 15:00 23:00 07:00 Intake Total 720 ml 600 ml Balance 720 ml 600 ml Labs: Laboratory Tests Test 10/15/21 07:45 Glucose (Fingerstick) 123 mg/dL (70-99) H Current Medications: Meds: Laboratory Tests Test 10/15/21 07:45 Glucose (Fingerstick) 123 mg/dL Current Medications Medications (Trade) Dose Ordered Sig/Maeve Route PRN Reason Start Time Stop Time Status Last Admin Dose Admin Acetaminophen (Tylenol) 650 mg PRN Q6HRS PRN PO MILD PAIN / TEMP > 100.3'F 10/10/21 16:30 10/14/21 07:57 Multi-Ingredient Ointment (Analgesic [place]) 1 freeman PRN QID PRN TP MUSCLE PAIN 10/10/21 16:30 Al Hydroxide/Mg Hydroxide (Mylanta Plus Xs) 15 ml PRN AFTMEALHC PRN PO DYSPEPSIA 10/10/21 16:30 Magnesium Hydroxide (Milk Of Magnesia) 2,400 mg PRN QHS PRN PO CONSTIPATION 10/10/21 16:30 10/12/21 20:26 Divalproex Sodium (Depakote) 125 mg BID PO 10/10/21 21:00 10/11/21 16:59 DC 10/11/21 07:47 Lorazepam (Ativan) 1 mg PRN Q6HRS PRN PO ANXIETY 10/10/21 16:45 10/11/21 16:59 DC 10/11/21 14:02 Metformin HCl (Glucophage) 500 mg BIDWMEALS PO 10/10/21 17:00 10/15/21 17:23 Nystatin (Nystop) 1 freeman PRN Q12HR PRN TP RASH 10/10/21 16:45 Non-Formulary Medication (Dulaglutide (Trulicity)) 0.75 mg WEEKLY SQ 10/11/21 15:00 10/11/21 15:22 Lisinopril (Prinivil) 40 mg DAILY PO 10/11/21 09:00 10/15/21 12:12 Atorvastatin Calcium (Lipitor) 40 mg QHS PO 10/10/21 21:00 10/15/21 21:01 Divalproex Sodium (Depakote) 250 mg BID PO 10/11/21 21:00 10/15/21 21:01 Lorazepam (Ativan) 0.5 mg QIDPRN PRN PO ANXIETY 10/11/21 17:00 10/13/21 20:02 Olanzapine (ZyPREXA ZYDIS) 2.5 mg PRN Q2HR PRN PO PSYCHOSIS 10/11/21 17:00 10/12/21 23:22 Duloxetine HCl (Cymbalta) 30 mg DAILY PO 10/13/21 09:00 10/15/21 12:12 Fentanyl (Duragesic 12mcg/ Hr) 1 patch Q3DAYS TD 10/13/21 17:00 10/13/21 17:29 Cefdinir (Omnicef) 300 mg BID PO 10/15/21 21:00 10/22/21 22:00 10/15/21 21:01 Current Medications Medications (Trade) Dose Ordered Sig/Maeve Route PRN Reason Start Time Stop Time Status Last Admin Dose Admin Cefdinir (Omnicef) 300 mg BID PO 10/15/21 21:00 10/22/21 22:00 10/15/21 21:01 I have reviewed the current psychotropics carefully including drug interactions. Risk benefit ratio favors no change other than as noted in my dictated progress note. Diagnosis: Problems: (1) Impulse control disorder, unspecified (2) Anxiety disorder, unspecified (3) Intellectual disability (4) Dementia, vascular, with depression (5) Dementia, vascular, with delusions (6) Dementia in Alzheimer's disease with depression (7) Dementia in Alzheimer's disease with delusions (8) Dementia of the Alzheimer's type with early onset with behavioral disturbance (9) Major neurocognitive disorder RAMOS HORTA MD Oct 15, 2021 22:03
[2021-10-16 06:19] VITALS: BP 122/71
--- NOTE | 2021-10-16 08:28 | PDOC ---
Exam Note: Zana Note: This note is a late entry for 10/14/2021 covers elements not covered in my initial note. Subjective: The patient was seen individually on 10/14/2021, discussed and reviewed the chart with Hunter SOTO. She slept 6 hours previous night. She has been calmer, less screaming. She does complain of abdominal pain. Received Tylenol. Valproic acid level is therapeutic at 71. Liver enzymes are unremarkable. She has to be assisted in feeding by nursing staff. Review of Systems: Ambulation impaired, in wheelchair. No CV, , pulmonary, eye system symptoms on review. Mental Status Exam: The patient is oriented to herself. Insight and judgment, recent and remote memory, attention and concentration, fund of knowledge is poor consistent with her diagnoses. Laboratory Data: Reviewed. Impression: Major neurocognitive disorder, Alzheimer, vascular with delusion, depression, behavioral disturbance. Anxiety disorder unspecified. Impulse control disorder unspecified. Intellectual disability. Plan: Maintain rest of the psychotropics for now. Reviewed drug interactions, risk-benefit ratio. Assessment: Vital Signs/I&O: Vital Signs Date Time Temp Pulse Resp B/P (MAP) Pulse Ox O2 Delivery O2 Flow Rate FiO2 10/16/21 06:19 98.3 95 20 122/71 (88) 92 Room Air I & O 10/15/21 10/15/21 10/16/21 15:00 23:00 07:00 Intake Total 120 ml 480 ml Balance 120 ml 480 ml Labs: Laboratory Tests Test 10/16/21 07:48 Glucose (Fingerstick) 101 mg/dL (70-99) H Current Medications: Meds: Current Medications Medications (Trade) Dose Ordered Sig/Maeve Route PRN Reason Start Time Stop Time Status Last Admin Dose Admin Cefdinir (Omnicef) 300 mg BID PO 10/15/21 21:00 10/22/21 22:00 10/15/21 21:01 I have reviewed the current psychotropics carefully including drug interactions. Risk benefit ratio favors no change other than as noted in my dictated progress note. Diagnosis: Problems: (1) Impulse control disorder, unspecified (2) Anxiety disorder, unspecified (3) Intellectual disability (4) Dementia, vascular, with depression (5) Dementia, vascular, with delusions (6) Dementia in Alzheimer's disease with depression (7) Dementia in Alzheimer's disease with delusions (8) Dementia of the Alzheimer's type with early onset with behavioral disturbanc e (9) Major neurocognitive disorder RAMOS HORTA MD Oct 16, 2021 08:28
[2021-10-16] MEDS: LISINOPRIL 20 MG TABLET PO SCH (08:56)
[2021-10-16] MEDS: metFORMIN 500 MG TABLET PO SCH ×2 (08:56→17:20)
[2021-10-16] MEDS: DULoxetine HCL 30 MG CAPSULE.DR PO SCH (08:56)
[2021-10-16] MEDS: DIVALPROEX SODIUM 250 MG TABLET.DR. PO SCH ×2 (08:56→21:03)
[2021-10-16] MEDS: CEFDINIR 300 MG CAPSULE PO SCH ×2 (08:56→21:03)
[2021-10-16] MEDS: fentaNYL 12MCG/HR 1 PATCH PATCH TD SCH (09:44)
[2021-10-16] MEDS: LACTOBACILLUS RHAMNOSUS GG 1 CAPSULE. PO SCH ×2 (09:44→21:03)
[2021-10-16 15:54] VITALS: BP 108/63
[2021-10-16] MEDS: ATORVASTATIN CALCIUM 20 MG TABLET PO SCH (21:03)
--- NOTE | 2021-10-16 22:04 | PDOC ---
Exam Note: Zana Note: Please also refer to the separate dictated note~for this date of service dictated separately.~Patient seen individually. Discussed the patient with Nursing staff reviewed the chart.~Reviewed interim history and current functioning. Reviewed vital signs,~Labs/ Radiology~and current medications noted below. Continue current treatment with the changes noted in the dictated addendum note Assessment: Vital Signs/I&O: Vital Signs Date Time Temp Pulse Resp B/P (MAP) Pulse Ox O2 Delivery O2 Flow Rate FiO2 10/16/21 15:54 97.6 96 20 108/63 (78) 97 10/16/21 15:22 Room Air I & O 10/15/21 10/15/21 10/16/21 15:00 23:00 07:00 Intake Total 120 ml 480 ml Balance 120 ml 480 ml Labs: Laboratory Tests Test 10/16/21 07:48 Glucose (Fingerstick) 101 mg/dL (70-99) H Current Medications: Meds: Laboratory Tests Test 10/16/21 07:48 Glucose (Fingerstick) 101 mg/dL Current Medications Medications (Trade) Dose Ordered Sig/Maeve Route PRN Reason Start Time Stop Time Status Last Admin Dose Admin Acetaminophen (Tylenol) 650 mg PRN Q6HRS PRN PO MILD PAIN / TEMP > 100.3'F 10/10/21 16:30 10/14/21 07:57 Multi-Ingredient Ointment (Analgesic [place]) 1 freeman PRN QID PRN TP MUSCLE PAIN 10/10/21 16:30 Al Hydroxide/Mg Hydroxide (Mylanta Plus Xs) 15 ml PRN AFTMEALHC PRN PO DYSPEPSIA 10/10/21 16:30 Magnesium Hydroxide (Milk Of Magnesia) 2,400 mg PRN QHS PRN PO CONSTIPATION 10/10/21 16:30 10/12/21 20:26 Divalproex Sodium (Depakote) 125 mg BID PO 10/10/21 21:00 10/11/21 16:59 DC 10/11/21 07:47 Lorazepam (Ativan) 1 mg PRN Q6HRS PRN PO ANXIETY 10/10/21 16:45 10/11/21 16:59 DC 10/11/21 14:02 Metformin HCl (Glucophage) 500 mg BIDWMEALS PO 10/10/21 17:00 10/16/21 17:20 Nystatin (Nystop) 1 freeman PRN Q12HR PRN TP RASH 10/10/21 16:45 Non-Formulary Medication (Dulaglutide (Trulicity)) 0.75 mg WEEKLY SQ 10/11/21 15:00 10/11/21 15:22 Lisinopril (Prinivil) 40 mg DAILY PO 10/11/21 09:00 10/16/21 08:56 Atorvastatin Calcium (Lipitor) 40 mg QHS PO 10/10/21 21:00 10/16/21 21:03 Divalproex Sodium (Depakote) 250 mg BID PO 10/11/21 21:00 10/16/21 21:03 Lorazepam (Ativan) 0.5 mg QIDPRN PRN PO ANXIETY 10/11/21 17:00 10/13/21 20:02 Olanzapine (ZyPREXA ZYDIS) 2.5 mg PRN Q2HR PRN PO PSYCHOSIS 10/11/21 17:00 10/12/21 23:22 Duloxetine HCl (Cymbalta) 30 mg DAILY PO 10/13/21 09:00 10/16/21 08:56 Fentanyl (Duragesic 12mcg/ Hr) 1 patch Q3DAYS TD 10/13/21 17:00 10/16/21 09:44 Cefdinir (Omnicef) 300 mg BID PO 10/15/21 21:00 10/22/21 22:00 10/16/21 21:03 Lactobacillus Rhamnosus (Culturelle) 1 cap BID PO 10/16/21 09:00 10/16/21 21:03 Current Medications Medications (Trade) Dose Ordered Sig/Maeve Route PRN Reason Start Time Stop Time Status Last Admin Dose Admin Lactobacillus Rhamnosus (Culturelle) 1 cap BID PO 10/16/21 09:00 10/16/21 21:03 I have reviewed the current psychotropics carefully including drug interactions. Risk benefit ratio favors no change other than as noted in my dictated progress note. Diagnosis: Problems: (1) Impulse control disorder, unspecified (2) Anxiety disorder, unspecified (3) Intellectual disability (4) Dementia, vascular, with depression (5) Dementia, vascular, with delusions (6) Dementia in Alzheimer's disease with depression (7) Dementia in Alzheimer's disease with delusions (8) Dementia of the Alzheimer's type with early onset with behavioral disturbance (9) Major neurocognitive disorder RAMOS HORTA MD Oct 16, 2021 22:04
[2021-10-17 06:47] VITALS: BP 147/75
[2021-10-17] MEDS: metFORMIN 500 MG TABLET PO SCH ×2 (08:00→17:22)
[2021-10-17] MEDS: DULoxetine HCL 30 MG CAPSULE.DR PO SCH (08:26)
[2021-10-17] MEDS: CEFDINIR 300 MG CAPSULE PO SCH ×2 (08:26→20:34)
[2021-10-17] MEDS: LACTOBACILLUS RHAMNOSUS GG 1 CAPSULE. PO SCH ×2 (08:27→20:34)
[2021-10-17] MEDS: LISINOPRIL 20 MG TABLET PO SCH (08:27)
[2021-10-17] MEDS: DIVALPROEX SODIUM 250 MG TABLET.DR. PO SCH ×2 (08:27→20:34)
--- NOTE | 2021-10-17 08:36 | PDOC ---
Exam Note: Zana Note: This note is a late entry for 10/15/2021 covers elements not covered in my initial note. Subjective: The patient was seen individually on 10/15/2021, discussed and reviewed the chart with Aleks SOTO. She slept 7-1/2 hours previous night. She has been screaming during the day and night, does seem to have some pain in the thoracic area and started on fentanyl patch and yelling is better. Review of Systems: Ambulation impaired, in wheelchair. No CV, , pulmonary, eye system symptoms on review. Mental Status Exam: The patient is oriented to herself. Insight and judgment, recent and remote memory, attention and concentration, fund of knowledge is poor consistent with her diagnoses. Laboratory Data: Reviewed. Impression: Major neurocognitive disorder, Alzheimer, vascular with delusion, depression, behavioral disturbance. Anxiety disorder unspecified. Impulse control disorder unspecified. Intellectual disability. Plan: Maintain rest of the psychotropics for now. Reviewed drug interactions, risk-benefit ratio. Treat the UTI. Adjust further as clinically indicated. Assessment: Vital Signs/I&O: Vital Signs Date Time Temp Pulse Resp B/P (MAP) Pulse Ox O2 Delivery O2 Flow Rate FiO2 10/17/21 08:27 88 147/75 10/17/21 06:47 97.8 16 94 10/16/21 15:22 Room Air I & O 10/16/21 10/16/21 10/17/21 15:00 23:00 07:00 Intake Total 560 ml 240 ml 100 ml Balance 560 ml 240 ml 100 ml Labs: Laboratory Tests Test 10/17/21 07:49 Glucose (Fingerstick) 101 mg/dL (70-99) H Current Medications: Meds: Current Medications Medications (Trade) Dose Ordered Sig/Maeve Route PRN Reason Start Time Stop Time Status Last Admin Dose Admin Lactobacillus Rhamnosus (Culturelle) 1 cap BID PO 10/16/21 09:00 10/17/21 08:27 I have reviewed the current psychotropics carefully including drug interactions. Risk benefit ratio favors no change other than as noted in my dictated progress note. Diagnosis: Problems: (1) Impulse control disorder, unspecified (2) Anxiety disorder, unspecified (3) Intellectual disability (4) Dementia, vascular, with depression (5) Dementia, vascular, with delusions (6) Dementia in Alzheimer's disease with depression (7) Dementia in Alzheimer's disease with delusions (8) Dementia of the Alzheimer's type with early onset with behavioral disturbance (9) Major neurocognitive disorder RAMOS HORTA MD Oct 17, 2021 08:36
--- NOTE | 2021-10-17 09:01 | PDOC ---
Exam Note: Zana Note: This note is a late entry for 10/16/2021 covers elements not covered in my initial note. Subjective: The patient was seen individually on 10/16/2021, discussed and reviewed the chart with Aleks SOTO. She slept 8-1/2 hours previous night. She has been sleeping well. No yelling noted. She takes her medications crushed, pleasant, somewhat chancelike given her level of functioning. Review of Systems: Ambulation impaired, in wheelchair. No CV, , pulmonary, eye system symptoms on review. Mental Status Exam: The patient is oriented to herself. Insight and judgment, recent and remote memory, attention and concentration, fund of knowledge is poor consistent with her diagnoses. Laboratory Data: Reviewed. Impression: Major neurocognitive disorder, Alzheimer, vascular with delusion, depression, behavioral disturbance. Anxiety disorder unspecified. Impulse control disorder unspecified. Intellectual disability. Plan: Maintain rest of the psychotropics for now. Reviewed drug interactions, risk-benefit ratio. Adjust further as clinically indicated. Assessment: Vital Signs/I&O: Vital Signs Date Time Temp Pulse Resp B/P (MAP) Pulse Ox O2 Delivery O2 Flow Rate FiO2 10/17/21 08:27 88 147/75 10/17/21 06:47 97.8 16 94 10/16/21 15:22 Room Air I & O 10/16/21 10/16/21 10/17/21 14:59 22:59 06:59 Intake Total 560 ml 240 ml 100 ml Balance 560 ml 240 ml 100 ml Labs: Laboratory Tests Test 10/17/21 07:49 Glucose (Fingerstick) 101 mg/dL (70-99) H Current Medications: I have reviewed the current psychotropics carefully including drug interactions. Risk benefit ratio favors no change other than as noted in my dictated progress note. Diagnosis: Problems: (1) Impulse control disorder, unspecified (2) Anxiety disorder, unspecified (3) Intellectual disability (4) Dementia, vascular, with depression (5) Dementia, vascular, with delusions (6) Dementia in Alzheimer's disease with depression (7) Dementia in Alzheimer's disease with delusions (8) Dementia of the Alzheimer's type with early onset with behavioral disturbance (9) Major neurocognitive disorder RAMOS HORTA MD Oct 17, 2021 09:00
[2021-10-17 16:03] VITALS: BP 109/68
[2021-10-17] MEDS: ATORVASTATIN CALCIUM 20 MG TABLET PO SCH (20:34)
--- NOTE | 2021-10-17 21:58 | PDOC ---
Exam Note: Zana Note: Please also refer to the separate dictated note~for this date of service dictated separately.~Patient seen individually. Discussed the patient with Nursing staff reviewed the chart.~Reviewed interim history and current functioning. Reviewed vital signs,~Labs/ Radiology~and current medications noted below. Continue current treatment with the changes noted in the dictated addendum note Assessment: Vital Signs/I&O: Vital Signs Date Time Temp Pulse Resp B/P (MAP) Pulse Ox O2 Delivery O2 Flow Rate FiO2 10/17/21 16:03 97.6 68 16 109/68 (82) 98 10/16/21 15:22 Room Air I & O 10/16/21 10/16/21 10/17/21 15:00 23:00 07:00 Intake Total 560 ml 240 ml 100 ml Balance 560 ml 240 ml 100 ml Labs: Laboratory Tests Test 10/17/21 07:49 Glucose (Fingerstick) 101 mg/dL (70-99) H Current Medications: Meds: Laboratory Tests Test 10/17/21 07:49 Glucose (Fingerstick) 101 mg/dL Current Medications Medications (Trade) Dose Ordered Sig/Maeve Route PRN Reason Start Time Stop Time Status Last Admin Dose Admin Acetaminophen (Tylenol) 650 mg PRN Q6HRS PRN PO MILD PAIN / TEMP > 100.3'F 10/10/21 16:30 10/14/21 07:57 Multi-Ingredient Ointment (Analgesic [place]) 1 freeman PRN QID PRN TP MUSCLE PAIN 10/10/21 16:30 Al Hydroxide/Mg Hydroxide (Mylanta Plus Xs) 15 ml PRN AFTMEALHC PRN PO DYSPEPSIA 10/10/21 16:30 Magnesium Hydroxide (Milk Of Magnesia) 2,400 mg PRN QHS PRN PO CONSTIPATION 10/10/21 16:30 10/12/21 20:26 Divalproex Sodium (Depakote) 125 mg BID PO 10/10/21 21:00 10/11/21 16:59 DC 10/11/21 07:47 Lorazepam (Ativan) 1 mg PRN Q6HRS PRN PO ANXIETY 10/10/21 16:45 10/11/21 16:59 DC 10/11/21 14:02 Metformin HCl (Glucophage) 500 mg BIDWMEALS PO 10/10/21 17:00 10/17/21 17:22 Nystatin (Nystop) 1 freeman PRN Q12HR PRN TP RASH 10/10/21 16:45 Non-Formulary Medication (Dulaglutide (Trulicity)) 0.75 mg WEEKLY SQ 10/11/21 15:00 10/11/21 15:22 Lisinopril (Prinivil) 40 mg DAILY PO 10/11/21 09:00 10/17/21 08:27 Atorvastatin Calcium (Lipitor) 40 mg QHS PO 10/10/21 21:00 10/17/21 20:34 Divalproex Sodium (Depakote) 250 mg BID PO 10/11/21 21:00 10/17/21 20:34 Lorazepam (Ativan) 0.5 mg QIDPRN PRN PO ANXIETY 10/11/21 17:00 10/13/21 20:02 Olanzapine (ZyPREXA ZYDIS) 2.5 mg PRN Q2HR PRN PO PSYCHOSIS 10/11/21 17:00 10/12/21 23:22 Duloxetine HCl (Cymbalta) 30 mg DAILY PO 10/13/21 09:00 10/17/21 08:26 Fentanyl (Duragesic 12mcg/ Hr) 1 patch Q3DAYS TD 10/13/21 17:00 10/16/21 09:44 Cefdinir (Omnicef) 300 mg BID PO 10/15/21 21:00 10/22/21 22:00 10/17/21 20:34 Lactobacillus Rhamnosus (Culturelle) 1 cap BID PO 10/16/21 09:00 10/17/21 20:34 I have reviewed the current psychotropics carefully including drug interactions. Risk benefit ratio favors no change other than as noted in my dictated progress note. Diagnosis: Problems: (1) Impulse control disorder, unspecified (2) Anxiety disorder, unspecified (3) Intellectual disability (4) Dementia, vascular, with depression (5) Dementia, vascular, with delusions (6) Dementia in Alzheimer's disease with depression (7) Dementia in Alzheimer's disease with delusions (8) Dementia of the Alzheimer's type with early onset with behavioral disturbance (9) Major neurocognitive disorder RAMOS HORTA MD Oct 17, 2021 21:58
[2021-10-18 06:30] VITALS: BP 126/73
[2021-10-18] MEDS: NON FORMULARY ITEM (Dulaglutide (Trulicity) 0.75 MG) SQ SCH (09:00)
[2021-10-18] MEDS: CEFDINIR 300 MG CAPSULE PO SCH ×2 (09:02→21:08)
[2021-10-18] MEDS: DULoxetine HCL 30 MG CAPSULE.DR PO SCH (09:02)
[2021-10-18] MEDS: metFORMIN 500 MG TABLET PO SCH ×2 (09:02→17:00)
[2021-10-18] MEDS: LACTOBACILLUS RHAMNOSUS GG 1 CAPSULE. PO SCH ×2 (09:02→21:08)
[2021-10-18] MEDS: DIVALPROEX SODIUM 250 MG TABLET.DR. PO SCH ×2 (09:03→21:08)
[2021-10-18] MEDS: LISINOPRIL 20 MG TABLET PO SCH (09:03)
[2021-10-18 16:12] VITALS: BP 116/67
[2021-10-18] MEDS: ATORVASTATIN CALCIUM 20 MG TABLET PO SCH (21:09)
--- NOTE | 2021-10-18 22:01 | PDOC ---
Exam Note: Zana Note: Please also refer to the separate dictated note~for this date of service dictated separately.~Patient seen individually. Discussed the patient with Nursing staff reviewed the chart.~Reviewed interim history and current functioning. Reviewed vital signs,~Labs/ Radiology~and current medications noted below. Continue current treatment with the changes noted in the dictated addendum note Assessment: Vital Signs/I&O: Vital Signs Date Time Temp Pulse Resp B/P (MAP) Pulse Ox O2 Delivery O2 Flow Rate FiO2 10/18/21 16:12 97.6 92 19 116/67 (83) 93 10/16/21 15:22 Room Air I & O 10/17/21 10/17/21 10/18/21 15:00 23:00 07:00 Intake Total 240 ml 320 ml Balance 240 ml 320 ml Labs: Laboratory Tests Test 10/18/21 07:22 Glucose (Fingerstick) 96 mg/dL (70-99) Current Medications: Meds: Laboratory Tests Test 10/18/21 07:22 Glucose (Fingerstick) 96 mg/dL Current Medications Medications (Trade) Dose Ordered Sig/Maeve Route PRN Reason Start Time Stop Time Status Last Admin Dose Admin Acetaminophen (Tylenol) 650 mg PRN Q6HRS PRN PO MILD PAIN / TEMP > 100.3'F 10/10/21 16:30 10/14/21 07:57 Multi-Ingredient Ointment (Analgesic [place]) 1 freeman PRN QID PRN TP MUSCLE PAIN 10/10/21 16:30 Al Hydroxide/Mg Hydroxide (Mylanta Plus Xs) 15 ml PRN AFTMEALHC PRN PO DYSPEPSIA 10/10/21 16:30 Magnesium Hydroxide (Milk Of Magnesia) 2,400 mg PRN QHS PRN PO CONSTIPATION 10/10/21 16:30 10/12/21 20:26 Divalproex Sodium (Depakote) 125 mg BID PO 10/10/21 21:00 10/11/21 16:59 DC 10/11/21 07:47 Lorazepam (Ativan) 1 mg PRN Q6HRS PRN PO ANXIETY 10/10/21 16:45 10/11/21 16:59 DC 10/11/21 14:02 Metformin HCl (Glucophage) 500 mg BIDWMEALS PO 10/10/21 17:00 10/18/21 17:00 Nystatin (Nystop) 1 freeman PRN Q12HR PRN TP RASH 10/10/21 16:45 Non-Formulary Medication (Dulaglutide (Trulicity)) 0.75 mg WEEKLY SQ 10/11/21 15:00 10/18/21 09:00 Lisinopril (Prinivil) 40 mg DAILY PO 10/11/21 09:00 10/18/21 09:03 Atorvastatin Calcium (Lipitor) 40 mg QHS PO 10/10/21 21:00 10/18/21 21:09 Divalproex Sodium (Depakote) 250 mg BID PO 10/11/21 21:00 10/18/21 21:08 Lorazepam (Ativan) 0.5 mg QIDPRN PRN PO ANXIETY 10/11/21 17:00 10/13/21 20:02 Olanzapine (ZyPREXA ZYDIS) 2.5 mg PRN Q2HR PRN PO PSYCHOSIS 10/11/21 17:00 10/12/21 23:22 Duloxetine HCl (Cymbalta) 30 mg DAILY PO 10/13/21 09:00 10/18/21 09:02 Fentanyl (Duragesic 12mcg/ Hr) 1 patch Q3DAYS TD 10/13/21 17:00 10/16/21 09:44 Cefdinir (Omnicef) 300 mg BID PO 10/15/21 21:00 10/22/21 22:00 10/18/21 21:08 Lactobacillus Rhamnosus (Culturelle) 1 cap BID PO 10/16/21 09:00 10/18/21 21:08 I have reviewed the current psychotropics carefully including drug interactions. Risk benefit ratio favors no change other than as noted in my dictated progress note. Diagnosis: Problems: (1) Impulse control disorder, unspecified (2) Anxiety disorder, unspecified (3) Intellectual disability (4) Dementia, vascular, with depression (5) Dementia, vascular, with delusions (6) Dementia in Alzheimer's disease with depression (7) Dementia in Alzheimer's disease with delusions (8) Dementia of the Alzheimer's type with early onset with behavioral disturbance (9) Major neurocognitive disorder RAMOS HORTA MD Oct 18, 2021 22:00
[2021-10-19 06:25] VITALS: BP 128/77
--- NOTE | 2021-10-19 08:36 | PDOC ---
Exam Note: Zana Note: This note is a late entry for 10/17/2021 covers elements not covered in my initial note. Subjective: The patient was seen individually on 10/17/2021, discussed and reviewed the chart with Eileen SOTO. She slept 6 hours previous night. I met with the patient at the dining room. She has not been agitated, playing games, much better since her valproic acid level is therapeutic. Review of Systems: Ambulation impaired, in wheelchair. No CV, , pulmonary, eye, ENT system symptoms on review. Mental Status Exam: The patient is oriented to herself. Insight and judgment, recent and remote memory, attention and concentration, fund of knowledge is poor consistent with her diagnoses. Laboratory Data: Reviewed. Impression: Major neurocognitive disorder, Alzheimer, vascular with delusion, depression, behavioral disturbance. Anxiety disorder unspecified. Impulse control disorder unspecified. Intellectual disability. Plan: Maintain rest of the psychotropics for now. Reviewed drug interactions, risk-benefit ratio. Adjust further as clinically indicated. Assessment: Vital Signs/I&O: Vital Signs Date Time Temp Pulse Resp B/P (MAP) Pulse Ox O2 Delivery O2 Flow Rate FiO2 10/19/21 06:25 98.6 83 16 128/77 (94) 93 10/16/21 15:22 Room Air I & O 10/18/21 10/18/21 10/19/21 15:00 23:00 07:00 Intake Total 720 ml 480 ml Balance 720 ml 480 ml Labs: Laboratory Tests Test 10/19/21 07:56 Glucose (Fingerstick) 88 mg/dL (70-99) Current Medications: I have reviewed the current psychotropics carefully including drug interactions. Risk benefit ratio favors no change other than as noted in my dictated progress note. Diagnosis: Problems: (1) Impulse control disorder, unspecified (2) Anxiety disorder, unspecified (3) Intellectual disability (4) Dementia, vascular, with depression (5) Dementia, vascular, with delusions (6) Dementia in Alzheimer's disease with depression (7) Dementia in Alzheimer's disease with delusions (8) Dementia of the Alzheimer's type with early onset with behavioral disturbance (9) Major neurocognitive disorder RAMOS HORTA MD Oct 19, 2021 08:35
[2021-10-19] MEDS: DIVALPROEX SODIUM 250 MG TABLET.DR. PO SCH ×2 (08:49→21:00)
[2021-10-19] MEDS: CEFDINIR 300 MG CAPSULE PO SCH ×2 (08:49→21:00)
[2021-10-19] MEDS: metFORMIN 500 MG TABLET PO SCH ×2 (08:49→17:46)
[2021-10-19] MEDS: DULoxetine HCL 30 MG CAPSULE.DR PO SCH (08:49)
[2021-10-19] MEDS: LACTOBACILLUS RHAMNOSUS GG 1 CAPSULE. PO SCH ×2 (08:50→21:00)
[2021-10-19] MEDS: LISINOPRIL 20 MG TABLET PO SCH (08:50)
--- NOTE | 2021-10-19 08:51 | PDOC ---
Exam Note: Zana Note: This note is a late entry for 10/18/2021 covers elements not covered in my initial note. Subjective: The patient was seen individually on 10/18/2021, discussed and reviewed the chart with Eileen SOTO. She slept 7-3/4 hours previous night. Overall she has had some mood lability and yelling and does have UTI which is being treated. Valproic acid level is therapeutic. She has been making animal noises in activity therapy games at times. I met with her in her room. Review of Systems: Ambulation impaired, in wheelchair. No CV, , pulmonary, eye, ENT system symptoms on review. Mental Status Exam: The patient is oriented to herself. Insight and judgment, recent and remote memory, attention and concentration, fund of knowledge is poor consistent with her diagnoses. Laboratory Data: Reviewed. Impression: Major neurocognitive disorder, Alzheimer, vascular with delusion, depression, behavioral disturbance. Anxiety disorder unspecified. Impulse control disorder unspecified. Intellectual disability. Plan: Maintain rest of the psychotropics for now. Reviewed drug interactions, risk-benefit ratio. Adjust further as clinically indicated. Once the UTI resolves and if mood lability, agitation, yelling persists, we will further adjust her psychotropics. Assessment: Vital Signs/I&O: Vital Signs Date Time Temp Pulse Resp B/P (MAP) Pulse Ox O2 Delivery O2 Flow Rate FiO2 10/19/21 08:50 83 128/77 10/19/21 06:25 98.6 16 93 10/16/21 15:22 Room Air I & O 10/18/21 10/18/21 10/19/21 15:00 23:00 07:00 Intake Total 720 ml 480 ml Balance 720 ml 480 ml Labs: Laboratory Tests Test 10/19/21 07:56 Glucose (Fingerstick) 88 mg/dL (70-99) Current Medications: I have reviewed the current psychotropics carefully including drug interactions. Risk benefit ratio favors no change other than as noted in my dictated progress note. Diagnosis: Problems: (1) Impulse control disorder, unspecified (2) Anxiety disorder, unspecified (3) Intellectual disability (4) Dementia, vascular, with depression (5) Dementia, vascular, with delusions (6) Dementia in Alzheimer's disease with depression (7) Dementia in Alzheimer's disease with delusions (8) Dementia of the Alzheimer's type with early onset with behavioral disturbance (9) Major neurocognitive disorder RAMOS HORTA MD Oct 19, 2021 08:51
[2021-10-19] MEDS: LORazepam 1 MG TABLET PO PRN (09:18)
[2021-10-19] MEDS: fentaNYL 12MCG/HR 1 PATCH PATCH TD SCH (09:19)
[2021-10-19] MEDS: ACETAMINOPHEN 325 MG TABLET PO PRN (09:30)
[2021-10-19 16:21] VITALS: BP 124/70
[2021-10-19] MEDS: ATORVASTATIN CALCIUM 20 MG TABLET PO SCH (21:00)
--- NOTE | 2021-10-19 21:53 | PDOC ---
Exam Note: Zana Note: Please also refer to the separate dictated note~for this date of service dictated separately.~Patient seen individually. Discussed the patient with Nursing staff reviewed the chart.~Reviewed interim history and current functioning. Reviewed vital signs,~Labs/ Radiology~and current medications noted below. Continue current treatment with the changes noted in the dictated addendum note Assessment: Vital Signs/I&O: Vital Signs Date Time Temp Pulse Resp B/P (MAP) Pulse Ox O2 Delivery O2 Flow Rate FiO2 10/19/21 16:21 97.4 91 20 124/70 (88) 96 10/16/21 15:22 Room Air I & O 10/18/21 10/18/21 10/19/21 15:00 23:00 07:00 Intake Total 720 ml 480 ml Balance 720 ml 480 ml Labs: Laboratory Tests Test 10/19/21 07:56 Glucose (Fingerstick) 88 mg/dL (70-99) Current Medications: Meds: Laboratory Tests Test 10/19/21 07:56 Glucose (Fingerstick) 88 mg/dL Current Medications Medications (Trade) Dose Ordered Sig/Maeve Route PRN Reason Start Time Stop Time Status Last Admin Dose Admin Acetaminophen (Tylenol) 650 mg PRN Q6HRS PRN PO MILD PAIN / TEMP > 100.3'F 10/10/21 16:30 10/19/21 09:30 Multi-Ingredient Ointment (Analgesic [place]) 1 freeman PRN QID PRN TP MUSCLE PAIN 10/10/21 16:30 Al Hydroxide/Mg Hydroxide (Mylanta Plus Xs) 15 ml PRN AFTMEALHC PRN PO DYSPEPSIA 10/10/21 16:30 Magnesium Hydroxide (Milk Of Magnesia) 2,400 mg PRN QHS PRN PO CONSTIPATION 10/10/21 16:30 10/12/21 20:26 Divalproex Sodium (Depakote) 125 mg BID PO 10/10/21 21:00 10/11/21 16:59 DC 10/11/21 07:47 Lorazepam (Ativan) 1 mg PRN Q6HRS PRN PO ANXIETY 10/10/21 16:45 10/11/21 16:59 DC 10/11/21 14:02 Metformin HCl (Glucophage) 500 mg BIDWMEALS PO 10/10/21 17:00 10/19/21 17:46 Nystatin (Nystop) 1 freeman PRN Q12HR PRN TP RASH 10/10/21 16:45 Non-Formulary Medication (Dulaglutide (Trulicity)) 0.75 mg WEEKLY SQ 10/11/21 15:00 10/18/21 09:00 Lisinopril (Prinivil) 40 mg DAILY PO 10/11/21 09:00 10/19/21 08:50 Atorvastatin Calcium (Lipitor) 40 mg QHS PO 10/10/21 21:00 10/18/21 21:09 Divalproex Sodium (Depakote) 250 mg BID PO 10/11/21 21:00 10/19/21 08:49 Lorazepam (Ativan) 0.5 mg QIDPRN PRN PO ANXIETY 10/11/21 17:00 10/19/21 09:18 Olanzapine (ZyPREXA ZYDIS) 2.5 mg PRN Q2HR PRN PO PSYCHOSIS 10/11/21 17:00 10/12/21 23:22 Duloxetine HCl (Cymbalta) 30 mg DAILY PO 10/13/21 09:00 10/19/21 08:49 Fentanyl (Duragesic 12mcg/ Hr) 1 patch Q3DAYS TD 10/13/21 17:00 10/19/21 09:19 Cefdinir (Omnicef) 300 mg BID PO 10/15/21 21:00 10/22/21 22:00 10/19/21 08:49 Lactobacillus Rhamnosus (Culturelle) 1 cap BID PO 10/16/21 09:00 10/19/21 08:50 I have reviewed the current psychotropics carefully including drug interactions. Risk benefit ratio favors no change other than as noted in my dictated progress note. Diagnosis: Problems: (1) Impulse control disorder, unspecified (2) Anxiety disorder, unspecified (3) Intellectual disability (4) Dementia, vascular, with depression (5) Dementia, vascular, with delusions (6) Dementia in Alzheimer's disease with depression (7) Dementia in Alzheimer's disease with delusions (8) Dementia of the Alzheimer's type with early onset with behavioral disturbance (9) Major neurocognitive disorder RAMOS HORTA MD Oct 19, 2021 21:53
[2021-10-20 06:04] VITALS: BP 133/78
[2021-10-20] MEDS: CEFDINIR 300 MG CAPSULE PO SCH ×2 (08:39→20:39)
[2021-10-20] MEDS: DULoxetine HCL 30 MG CAPSULE.DR PO SCH (08:39)
[2021-10-20] MEDS: DIVALPROEX SODIUM 250 MG TABLET.DR. PO SCH ×2 (08:39→17:24)
[2021-10-20] MEDS: metFORMIN 500 MG TABLET PO SCH ×2 (08:40→17:24)
[2021-10-20] MEDS: LISINOPRIL 20 MG TABLET PO SCH (08:40)
[2021-10-20] MEDS: LACTOBACILLUS RHAMNOSUS GG 1 CAPSULE. PO SCH ×2 (08:40→20:39)
[2021-10-20] MEDS: ACETAMINOPHEN 325 MG TABLET PO PRN (13:34)
[2021-10-20 16:19] VITALS: BP 103/57
[2021-10-20] MEDS: ATORVASTATIN CALCIUM 20 MG TABLET PO SCH (20:39)
--- NOTE | 2021-10-20 22:18 | PDOC ---
Exam Note: Zana Note: Please also refer to the separate dictated note~for this date of service dictated separately.~Patient seen individually. Discussed the patient with Nursing staff reviewed the chart.~Reviewed interim history and current functioning. Reviewed vital signs,~Labs/ Radiology~and current medications noted below. Continue current treatment with the changes noted in the dictated addendum note Assessment: Vital Signs/I&O: Vital Signs Date Time Temp Pulse Resp B/P (MAP) Pulse Ox O2 Delivery O2 Flow Rate FiO2 10/20/21 16:19 97.4 87 18 103/57 (72) 94 10/20/21 06:04 Room Air I & O 10/19/21 10/19/21 10/20/21 15:00 23:00 07:00 Intake Total 480 ml 600 ml Balance 480 ml 600 ml Labs: Laboratory Tests Test 10/20/21 07:27 10/20/21 11:50 Glucose (Fingerstick) 79 mg/dL (70-99) POC SARS CoV-2 Antigen Negative (NEGATIVE) Current Medications: Meds: Laboratory Tests Test 10/20/21 07:27 10/20/21 11:50 Glucose (Fingerstick) 79 mg/dL POC SARS CoV-2 Antigen Negative Current Medications Medications (Trade) Dose Ordered Sig/Maeve Route PRN Reason Start Time Stop Time Status Last Admin Dose Admin Acetaminophen (Tylenol) 650 mg PRN Q6HRS PRN PO MILD PAIN / TEMP > 100.3'F 10/10/21 16:30 10/20/21 13:34 Multi-Ingredient Ointment (Analgesic [place]) 1 freeman PRN QID PRN TP MUSCLE PAIN 10/10/21 16:30 Al Hydroxide/Mg Hydroxide (Mylanta Plus Xs) 15 ml PRN AFTMEALHC PRN PO DYSPEPSIA 10/10/21 16:30 Magnesium Hydroxide (Milk Of Magnesia) 2,400 mg PRN QHS PRN PO CONSTIPATION 10/10/21 16:30 10/12/21 20:26 Divalproex Sodium (Depakote) 125 mg BID PO 10/10/21 21:00 10/11/21 16:59 DC 10/11/21 07:47 Lorazepam (Ativan) 1 mg PRN Q6HRS PRN PO ANXIETY 10/10/21 16:45 10/11/21 16:59 DC 10/11/21 14:02 Metformin HCl (Glucophage) 500 mg BIDWMEALS PO 10/10/21 17:00 10/20/21 17:24 Nystatin (Nystop) 1 freeman PRN Q12HR PRN TP RASH 10/10/21 16:45 Non-Formulary Medication (Dulaglutide (Trulicity)) 0.75 mg WEEKLY SQ 10/11/21 15:00 10/18/21 09:00 Lisinopril (Prinivil) 40 mg DAILY PO 10/11/21 09:00 10/20/21 08:40 Atorvastatin Calcium (Lipitor) 40 mg QHS PO 10/10/21 21:00 10/20/21 20:39 Divalproex Sodium (Depakote) 250 mg BID PO 10/11/21 21:00 10/20/21 13:58 DC 10/20/21 08:39 Lorazepam (Ativan) 0.5 mg QIDPRN PRN PO ANXIETY 10/11/21 17:00 10/19/21 09:18 Olanzapine (ZyPREXA ZYDIS) 2.5 mg PRN Q2HR PRN PO PSYCHOSIS 10/11/21 17:00 10/12/21 23:22 Duloxetine HCl (Cymbalta) 30 mg DAILY PO 10/13/21 09:00 10/20/21 08:39 Fentanyl (Duragesic 12mcg/ Hr) 1 patch Q3DAYS TD 10/13/21 17:00 10/19/21 09:19 Cefdinir (Omnicef) 300 mg BID PO 10/15/21 21:00 10/22/21 22:00 10/20/21 20:39 Lactobacillus Rhamnosus (Culturelle) 1 cap BID PO 10/16/21 09:00 10/20/21 20:39 Divalproex Sodium (Depakote) 250 mg 0900,1700 PO 10/20/21 17:00 10/20/21 17:24 Current Medications Medications (Trade) Dose Ordered Sig/Maeve Route PRN Reason Start Time Stop Time Status Last Admin Dose Admin Divalproex Sodium (Depakote) 250 mg 0900,1700 PO 10/20/21 17:00 10/20/21 17:24 I have reviewed the current psychotropics carefully including drug interactions. Risk benefit ratio favors no change other than as noted in my dictated progress note. Diagnosis: Problems: (1) Impulse control disorder, unspecified (2) Anxiety disorder, unspecified (3) Intellectual disability (4) Dementia, vascular, with depression (5) Dementia, vascular, with delusions (6) Dementia in Alzheimer's disease with depression (7) Dementia in Alzheimer's disease with delusions (8) Dementia of the Alzheimer's type with early onset with behavioral distur bance (9) Major neurocognitive disorder RAMOS HORTA MD Oct 20, 2021 22:18
[2021-10-21 06:10] VITALS: BP_SYST 103; BP_SYST 124; BP_DIAS 57; BP_DIAS 74
[2021-10-21] MEDS: CEFDINIR 300 MG CAPSULE PO SCH ×2 (08:15→20:08)
[2021-10-21] MEDS: ACETAMINOPHEN 325 MG TABLET PO PRN (08:15)
[2021-10-21] MEDS: LACTOBACILLUS RHAMNOSUS GG 1 CAPSULE. PO SCH ×2 (08:16→20:08)
[2021-10-21] MEDS: DULoxetine HCL 30 MG CAPSULE.DR PO SCH (08:16)
[2021-10-21] MEDS: DIVALPROEX SODIUM 250 MG TABLET.DR. PO SCH ×2 (08:16→17:17)
[2021-10-21] MEDS: metFORMIN 500 MG TABLET PO SCH ×2 (08:16→17:17)
[2021-10-21] MEDS: LISINOPRIL 20 MG TABLET PO SCH (08:17)
--- NOTE | 2021-10-21 11:53 | PDOC ---
Exam Note: Zana Note: This note is a late entry for 10/19/2021 covers elements not covered in my initial note. Subjective: The patient was seen individually on 10/19/2021, discussed and reviewed the chart with Hunter SOTO. She slept 7-1/2 hours previous night. Valproic acid level is 71. She has been much calmer, seems to respond to the soft toy. Review of Systems: Ambulation impaired, in wheelchair. No CV, , pulmonary, eye, ENT system symptoms on review. Mental Status Exam: The patient is oriented to herself. Insight and judgment, recent and remote memory, attention and concentration, fund of knowledge is poor consistent with her diagnoses. Laboratory Data: Reviewed. Impression: Major neurocognitive disorder, Alzheimer, vascular with delusion, depression, behavioral disturbance. Anxiety disorder unspecified. Impulse con trol disorder unspecified. Intellectual disability. Plan: Maintain rest of the psychotropics for now. Reviewed drug interactions, risk-benefit ratio. Adjust further as clinically indicated. Assessment: Vital Signs/I&O: Vital Signs Date Time Temp Pulse Resp B/P (MAP) Pulse Ox O2 Delivery O2 Flow Rate FiO2 10/21/21 08:17 90 124/74 10/21/21 06:10 97.3 18 94 10/20/21 06:04 Room Air I & O 10/20/21 10/20/21 10/21/21 14:59 22:59 06:59 Intake Total 620 ml 200 ml Balance 620 ml 200 ml Labs: Laboratory Tests Test 10/21/21 07:24 Glucose (Fingerstick) 91 mg/dL (70-99) Current Medications: Meds: Current Medications Medications (Trade) Dose Ordered Sig/Maeve Route PRN Reason Start Time Stop Time Status Last Admin Dose Admin Divalproex Sodium (Depakote) 250 mg 0900,1700 PO 10/20/21 17:00 10/21/21 08:16 I have reviewed the current psychotropics carefully including drug interactions. Risk benefit ratio favors no change other than as noted in my dictated progress note. Diagnosis: Problems: (1) Impulse control disorder, unspecified (2) Anxiety disorder, unspecified (3) Intellectual disability (4) Dementia, vascular, with depression (5) Dementia, vascular, with delusions (6) Dementia in Alzheimer's disease with depression (7) Dementia in Alzheimer's disease with delusions (8) Dementia of the Alzheimer's type with early onset with behavioral disturbance (9) Major neurocognitive disorder RAMOS HORTA MD Oct 21, 2021 11:53
--- NOTE | 2021-10-21 12:15 | PDOC ---
Exam Note: Zana Note: This note is a late entry for 10/20/2021 covers elements not covered in my initial note. Subjective: The patient was reviewed at treatment team meeting individually in the morning on 10/20/2021 with Gerda Gates, Sonia Quick, and Siri Acosta (social media sr strategy manager), Nathalia, activity therapy, and Tru SOTO, discussed and reviewed the chart. We reviewed the patients history, diagnoses, treatment prognosis at some length. She slept 7-1/4 hours previous night average. Appetite 35% intake. She has Cefdinir for her UTI for another 2 days. H.s. meds were held since she was sleeping but we will make sure she gets her Depakote and we will change the timing to 9 a.m. 5 p.m. She is quite enamored by the soft toy given to her. Review of Systems: Ambulation impaired, in wheelchair. No CV, , pulmonary, eye, ENT system symptoms on review. Mental Status Exam: The patient is oriented to herself. Insight and judgment, recent and remote memory, attention and concentration, fund of knowledge is poor consistent with her diagnoses. Laboratory Data: Reviewed. Impression: Major neurocognitive disorder, Alzheimer, vascular with delusion, depression, behavioral disturbance. Anxiety disorder unspecified. Impulse control disorder unspecified. Intellectual disability. Plan: Maintain rest of the psychotropics for now. Reviewed drug interactions, risk-benefit ratio. Adjust further as clinically indicated. Assessment: Vital Signs/I&O: Vital Signs Date Time Temp Pulse Resp B/P (MAP) Pulse Ox O2 Delivery O2 Flow Rate FiO2 10/21/21 08:17 90 124/74 10/21/21 06:10 97.3 18 94 10/20/21 06:04 Room Air I & O 10/20/21 10/20/21 10/21/21 14:59 22:59 06:59 Intake Total 620 ml 200 ml Balance 620 ml 200 ml Labs: Laboratory Tests Test 10/21/21 07:24 Glucose (Fingerstick) 91 mg/dL (70-99) Current Medications: Meds: Current Medications Medications (Trade) Dose Ordered Sig/Maeve Route PRN Reason Start Time Stop Time Status Last Admin Dose Admin Divalproex Sodium (Depakote) 250 mg 0900,1700 PO 10/20/21 17:00 10/21/21 08:16 I have reviewed the current psychotropics carefully including drug interactions. Risk benefit ratio favors no change other than as noted in my dictated progress note. Diagnosis: Problems: (1) Impulse control disorder, unspecified (2) Anxiety disorder, unspecified (3) Intellectual disability (4) Dementia, vascular, with depression (5) Dementia, vascular, with delusions (6) Dementia in Alzheimer's disease with depression (7) Dementia in Alzheimer's disease with delusions (8) Dementia of the Alzheimer's type with early onset with behavioral disturbance (9) Major neurocognitive disorder RAMOS HORTA MD Oct 21, 2021 12:15
[2021-10-21 15:52] VITALS: BP 116/68
[2021-10-21] MEDS: ATORVASTATIN CALCIUM 20 MG TABLET PO SCH (20:09)
--- NOTE | 2021-10-21 21:26 | PDOC ---
Exam Note: Zana Note: Please also refer to the separate dictated note~for this date of service dictated separately.~Patient seen individually. Discussed the patient with Nursing staff reviewed the chart.~Reviewed interim history and current functioning. Reviewed vital signs,~Labs/ Radiology~and current medications noted below. Continue current treatment with the changes noted in the dictated addendum note Assessment: Vital Signs/I&O: Vital Signs Date Time Temp Pulse Resp B/P (MAP) Pulse Ox O2 Delivery O2 Flow Rate FiO2 10/21/21 15:52 97.4 72 18 116/68 (84) 97 10/20/21 06:04 Room Air I & O 10/20/21 10/20/21 10/21/21 15:00 23:00 07:00 Intake Total 620 ml 200 ml Balance 620 ml 200 ml Labs: Laboratory Tests Test 10/21/21 07:24 Glucose (Fingerstick) 91 mg/dL (70-99) Current Medications: Meds: Laboratory Tests Test 10/21/21 07:24 Glucose (Fingerstick) 91 mg/dL Current Medications Medications (Trade) Dose Ordered Sig/Maeve Route PRN Reason Start Time Stop Time Status Last Admin Dose Admin Acetaminophen (Tylenol) 650 mg PRN Q6HRS PRN PO MILD PAIN / TEMP > 100.3'F 10/10/21 16:30 10/21/21 08:15 Multi-Ingredient Ointment (Analgesic [place]) 1 freeman PRN QID PRN TP MUSCLE PAIN 10/10/21 16:30 Al Hydroxide/Mg Hydroxide (Mylanta Plus Xs) 15 ml PRN AFTMEALHC PRN PO DYSPEPSIA 10/10/21 16:30 Magnesium Hydroxide (Milk Of Magnesia) 2,400 mg PRN QHS PRN PO CONSTIPATION 10/10/21 16:30 10/12/21 20:26 Divalproex Sodium (Depakote) 125 mg BID PO 10/10/21 21:00 10/11/21 16:59 DC 10/11/21 07:47 Lorazepam (Ativan) 1 mg PRN Q6HRS PRN PO ANXIETY 10/10/21 16:45 10/11/21 16:59 DC 10/11/21 14:02 Metformin HCl (Glucophage) 500 mg BIDWMEALS PO 10/10/21 17:00 10/21/21 17:17 Nystatin (Nystop) 1 freeman PRN Q12HR PRN TP RASH 10/10/21 16:45 Non-Formulary Medication (Dulaglutide (Trulicity)) 0.75 mg WEEKLY SQ 10/11/21 15:00 10/18/21 09:00 Lisinopril (Prinivil) 40 mg DAILY PO 10/11/21 09:00 10/21/21 08:17 Atorvastatin Calcium (Lipitor) 40 mg QHS PO 10/10/21 21:00 10/21/21 20:09 Divalproex Sodium (Depakote) 250 mg BID PO 10/11/21 21:00 10/20/21 13:58 DC 10/20/21 08:39 Lorazepam (Ativan) 0.5 mg QIDPRN PRN PO ANXIETY 10/11/21 17:00 10/19/21 09:18 Olanzapine (ZyPREXA ZYDIS) 2.5 mg PRN Q2HR PRN PO PSYCHOSIS 10/11/21 17:00 10/12/21 23:22 Duloxetine HCl (Cymbalta) 30 mg DAILY PO 10/13/21 09:00 10/21/21 08:16 Fentanyl (Duragesic 12mcg/ Hr) 1 patch Q3DAYS TD 10/13/21 17:00 10/19/21 09:19 Cefdinir (Omnicef) 300 mg BID PO 10/15/21 21:00 10/22/21 22:00 10/21/21 20:08 Lactobacillus Rhamnosus (Culturelle) 1 cap BID PO 10/16/21 09:00 10/21/21 20:08 Divalproex Sodium (Depakote) 250 mg 0900,1700 PO 10/20/21 17:00 10/21/21 17:52 DC 10/21/21 17:17 Divalproex Sodium (Depakote Sprinkles) 250 mg 0900,1700 PO 10/22/21 09:00 I have reviewed the current psychotropics carefully including drug interactions. Risk benefit ratio favors no change other than as noted in my dictated progress note. Diagnosis: Problems: (1) Impulse control disorder, unspecified (2) Anxiety disorder, unspecified (3) Intellectual disability (4) Dementia, vascular, with depression (5) Dementia, vascular, with delusions (6) Dementia in Alzheimer's disease with depression (7) Dementia in Alzheimer's disease with delusions (8) Dementia of the Alzheimer's type with early onset with behavioral disturbance (9) Major neurocognitive disorder RAMOS HORTA MD Oct 21, 2021 21:26
--- NOTE | 2021-10-22 06:33 | PDOC ---
Exam Note: Zana Note: This note is a late entry for 10/21/2021 covers elements not covered in my initial note. Subjective: The patient was seen individually on 10/21/2021, discussed and reviewed the chart with Tru SOTO. The patient slept 7 hours previous night. She remains disorganized, often yells out to the nursing staff hey lady. She is frequently talking to her soft toy cat. Another patient has taken a liking to her and was feeding her lunch. She is on Depakote delayed released, we will change to Sprinkle at nursing request to help with compliance. I met with her in the TV lounge dayroom. Review of Systems: Ambulation impaired, in wheelchair. No CV, , pulmonary, eye, ENT system symptoms on review. Mental Status Exam: The patient is oriented to herself. Insight and judgment, recent and remote memory, attention and concentration, fund of knowledge is poor consistent with her diagnoses. Laboratory Data: Reviewed. Impression: Major neurocognitive disorder, Alzheimer, vascular with delusion, depression, behavioral disturbance. Anxiety disorder unspecified. Impulse control disorder unspecified. Intellectual disability. Plan: Maintain rest of the psychotropics for now. Reviewed drug interactions, risk-benefit ratio. Adjust further as clinically indicated. Assessment: Vital Signs/I&O: Vital Signs Date Time Temp Pulse Resp B/P (MAP) Pulse Ox O2 Delivery O2 Flow Rate FiO2 10/21/21 15:52 97.4 72 18 116/68 (84) 97 10/20/21 06:04 Room Air I & O 10/21/21 10/21/21 10/22/21 15:00 23:00 07:00 Intake Total 480 ml 480 ml Balance 480 ml 480 ml Labs: Laboratory Tests Test 10/21/21 07:24 Glucose (Fingerstick) 91 mg/dL (70-99) Current Medications: I have reviewed the current psychotropics carefully including drug interactions. Risk benefit ratio favors no change other than as noted in my dictated progress note. Diagnosis: Problems: (1) Impulse control disorder, unspecified (2) Anxiety disorder, unspecified (3) Intellectual disability (4) Dementia, vascular, with depression (5) Dementia, vascular, with delusions (6) Dementia in Alzheimer's disease with depression (7) Dementia in Alzheimer's disease with delusions (8) Dementia of the Alzheimer's type with early onset with behavioral disturbance (9) Major neurocognitive disorder RAMOS HORTA MD Oct 22, 2021 06:33
[2021-10-22 06:48] VITALS: BP 100/66
[2021-10-22 07:01] LABS: BASO % 0 % (0-3); EOS # 0.2 x10^3/uL (0.0-0.7); EOS % 2 % (0-3); HEMATOCRIT 35.3 % (36.0-47.0); HEMOGLOBIN 11.6 g/dL (12.0-15.5); LYMPH # 1.1 x10^3/uL (1.0-4.8); LYMPH % 10 % (24-48); MEAN CORPUSCULAR HEMOGLOBIN 29 pg (25-35); MEAN CORPUSCULAR HGB CONC 33 g/dL (31-37); MEAN CORPUSCULAR VOLUME 87 fL (79-100); MONO # 0.6 x10^3/uL (0.0-1.1); MONO % 5 % (0-9); NEUT # 8.9 x10^3uL (1.8-7.7); NEUT % 83 % (31-73); PLATELET COUNT 198 x10^3/uL (140-400); RED BLOOD COUNT 4.05 x10^6/uL (3.50-5.40); RED CELL DISTRIBUTION WIDTH 15.5 % (11.5-14.5); WHITE BLOOD COUNT 10.8 x10^3/uL (4.0-11.0)
[2021-10-22 07:05] LABS: ALBUMIN 3.5 g/dL (3.4-5.0); ALBUMIN/GLOBULIN RATIO 1.1 (1.0-1.7); CREATININE 0.9 mg/dL (0.6-1.0); GFR 60.9; TOTAL BILIRUBIN 0.3 mg/dL (0.2-1.0); TOTAL PROTEIN 6.6 g/dL (6.4-8.2)
[2021-10-22] MEDS: DIVALPROEX 125 MG CAP.SPRINK PO SCH ×2 (08:11→17:13)
[2021-10-22] MEDS: LACTOBACILLUS RHAMNOSUS GG 1 CAPSULE. PO SCH ×2 (08:11→19:23)
[2021-10-22] MEDS: metFORMIN 500 MG TABLET PO SCH ×2 (08:11→17:12)
[2021-10-22] MEDS: DULoxetine HCL 30 MG CAPSULE.DR PO SCH (08:13)
[2021-10-22] MEDS: CEFDINIR 300 MG CAPSULE PO SCH ×2 (08:13→19:23)
[2021-10-22] MEDS: LISINOPRIL 20 MG TABLET PO SCH (08:13)
[2021-10-22] MEDS: fentaNYL 12MCG/HR 1 PATCH PATCH TD SCH (08:14)
[2021-10-22] MEDS: ACETAMINOPHEN 325 MG TABLET PO PRN (08:15)
[2021-10-22 16:01] VITALS: BP 109/70
[2021-10-22] MEDS: ATORVASTATIN CALCIUM 20 MG TABLET PO SCH (19:24)
--- NOTE | 2021-10-22 22:27 | PDOC ---
Exam Note: Zana Note: Please also refer to the separate dictated note~for this date of service dictated separately.~Patient seen individually. Discussed the patient with Nursing staff reviewed the chart.~Reviewed interim history and current functioning. Reviewed vital signs,~Labs/ Radiology~and current medications noted below. Continue current treatment with the changes noted in the dictated addendum note Assessment: Vital Signs/I&O: Vital Signs Date Time Temp Pulse Resp B/P (MAP) Pulse Ox O2 Delivery O2 Flow Rate FiO2 10/22/21 16:01 97.1 93 16 109/70 (83) 97 10/22/21 12:15 Room Air I & O 10/21/21 10/21/21 10/22/21 15:00 23:00 07:00 Intake Total 480 ml 480 ml Balance 480 ml 480 ml Labs: Laboratory Tests Test 10/22/21 06:36 White Blood Count 10.8 x10^3/uL (4.0-11.0) Red Blood Count 4.05 x10^6/uL (3.50-5.40) Hemoglobin 11.6 g/dL (12.0-15.5) L Hematocrit 35.3 % (36.0-47.0) L Mean Corpuscular Volume 87 fL (79-100) Mean Corpuscular Hemoglobin 29 pg (25-35) Mean Corpuscular Hemoglobin Concent 33 g/dL (31-37) Red Cell Distribution Width 15.5 % (11.5-14.5) H Platelet Count 198 x10^3/uL (140-400) Neutrophils (%) (Auto) 83 % (31-73) H Lymphocytes (%) (Auto) 10 % (24-48) L Monocytes (%) (Auto) 5 % (0-9) Eosinophils (%) (Auto) 2 % (0-3) Basophils (%) (Auto) 0 % (0-3) Neutrophils # (Auto) 8.9 x10^3uL (1.8-7.7) H Lymphocytes # (Auto) 1.1 x10^3/uL (1.0-4.8) Monocytes # (Auto) 0.6 x10^3/uL (0.0-1.1) Eosinophils # (Auto) 0.2 x10^3/uL (0.0-0.7) Basophils # (Auto) 0.0 x10^3/uL (0.0-0.2) Sodium Level 146 mmol/L (136-145) H Potassium Level 5.0 mmol/L (3.5-5.1) Chloride Level 106 mmol/L (98-107) Carbon Dioxide Level 29 mmol/L (21-32) Anion Gap 11 (6-14) Blood Urea Nitrogen 36 mg/dL (7-20) H Creatinine 0.9 mg/dL (0.6-1.0) Estimated GFR (Cockcroft-Gault) 60.9 BUN/Creatinine Ratio 40 (6-20) H Glucose Level 105 mg/dL (70-99) H Calcium Level 9.0 mg/dL (8.5-10.1) Total Bilirubin 0.3 mg/dL (0.2-1.0) Aspartate Amino Transferase (AST) 14 U/L (15-37) L Alanine Aminotransferase (ALT) 17 U/L (14-59) Alkaline Phosphatase 75 U/L (46-116) Total Protein 6.6 g/dL (6.4-8.2) Albumin 3.5 g/dL (3.4-5.0) Albumin/Globulin Ratio 1.1 (1.0-1.7) Current Medications: Meds: Laboratory Tests Test 10/22/21 06:36 White Blood Count 10.8 x10^3/uL Red Blood Count 4.05 x10^6/uL Hemoglobin 11.6 g/dL Hematocrit 35.3 % Mean Corpuscular Volume 87 fL Mean Corpuscular Hemoglobin 29 pg Mean Corpuscular Hemoglobin Concent 33 g/dL Red Cell Distribution Width 15.5 % Platelet Count 198 x10^3/uL Neutrophils (%) (Auto) 83 % Lymphocytes (%) (Auto) 10 % Monocytes (%) (Auto) 5 % Eosinophils (%) (Auto) 2 % Basophils (%) (Auto) 0 % Neutrophils # (Auto) 8.9 x10^3uL Lymphocytes # (Auto) 1.1 x10^3/uL Monocytes # (Auto) 0.6 x10^3/uL Eosinophils # (Auto) 0.2 x10^3/uL Basophils # (Auto) 0.0 x10^3/uL Sodium Level 146 mmol/L Potassium Level 5.0 mmol/L Chloride Level 106 mmol/L Carbon Dioxide Level 29 mmol/L Anion Gap 11 Blood Urea Nitrogen 36 mg/dL Creatinine 0.9 mg/dL Estimated GFR (Cockcroft-Gault) 60.9 BUN/Creatinine Ratio 40 Glucose Level 105 mg/dL Calcium Level 9.0 mg/dL Total Bilirubin 0.3 mg/dL Aspartate Amino Transf (AST/SGOT) 14 U/L Alanine Aminotransferase (ALT/SGPT) 17 U/L Alkaline Phosphatase 75 U/L Total Protein 6.6 g/dL Albumin 3.5 g/dL Albumin/Globulin Ratio 1.1 Current Medications Medications (Trade) Dose Ordered Sig/Maeve Route PRN Reason Start Time Stop Time Status Last Admin Dose Admin Acetaminophen (Tylenol) 650 mg PRN Q6HRS PRN PO MILD PAIN / TEMP > 100.3'F 10/10/21 16:30 10/22/21 08:15 Multi-Ingredient Ointment (Analgesic [place]) 1 freeman PRN QID PRN TP MUSCLE PAIN 10/10/21 16:30 Al Hydroxide/Mg Hydroxide (Mylanta Plus Xs) 15 ml PRN AFTMEALHC PRN PO DYSPEPSIA 10/10/21 16:30 Magnesium Hydroxide (Milk Of Magnesia) 2,400 mg PRN QHS PRN PO CONSTIPATION 10/10/21 16:30 10/12/21 20:26 Divalproex Sodium (Depakote) 125 mg BID PO 10/10/21 21:00 10/11/21 16:59 DC 10/11/21 07:47 Lorazepam (Ativan) 1 mg PRN Q6HRS PRN PO ANXIETY 10/10/21 16:45 10/11/21 16:59 DC 10/11/21 14:02 Metformin HCl (Glucophage) 500 mg BIDWMEALS PO 10/10/21 17:00 10/22/21 17:12 Nystatin (Nystop) 1 freeman PRN Q12HR PRN TP RASH 10/10/21 16:45 Non-Formulary Medication (Dulaglutide (Trulicity)) 0.75 mg WEEKLY SQ 10/11/21 15:00 10/18/21 09:00 Lisinopril (Prinivil) 40 mg DAILY PO 10/11/21 09:00 10/22/21 08:13 Atorvastatin Calcium (Lipitor) 40 mg QHS PO 10/10/21 21:00 10/22/21 19:24 Divalproex Sodium (Depakote) 250 mg BID PO 10/11/21 21:00 10/20/21 13:58 DC 10/20/21 08:39 Lorazepam (Ativan) 0.5 mg QIDPRN PRN PO ANXIETY 10/11/21 17:00 10/19/21 09:18 Olanzapine (ZyPREXA ZYDIS) 2.5 mg PRN Q2HR PRN PO PSYCHOSIS 10/11/21 17:00 10/22/21 19:27 Duloxetine HCl (Cymbalta) 30 mg DAILY PO 10/13/21 09:00 10/22/21 08:13 Fentanyl (Duragesic 12mcg/ Hr) 1 patch Q3DAYS TD 10/13/21 17:00 10/22/21 08:14 Cefdinir (Omnicef) 300 mg BID PO 10/15/21 21:00 10/22/21 22:00 DC 10/22/21 19:23 Lactobacillus Rhamnosus (Culturelle) 1 cap BID PO 10/16/21 09:00 10/22/21 19:23 Divalproex Sodium (Depakote) 250 mg 0900,1700 PO 10/20/21 17:00 10/21/21 17:52 DC 10/21/21 17:17 Divalproex Sodium (Depakote Sprinkles) 250 mg 0900,1700 PO 10/22/21 09:00 10/22/21 20:34 DC 10/22/21 17:13 Divalproex Sodium (Depakote Sprinkles) 375 mg 0900,1700 PO 10/23/21 09:00 Current Medications Medications (Trade) Dose Ordered Sig/Maeve Route PRN Reason Start Time Stop Time Status Last Admin Dose Admin Divalproex Sodium (Depakote Sprinkles) 250 mg 0900,1700 PO 10/22/21 09:00 10/22/21 20:34 DC 10/22/21 17:13 I have reviewed the current psychotropics carefully including drug interactions. Risk benefit ratio favors no change other than as noted in my dictated progress note. Diagnosis: Problems: (1) Impulse control disorder, unspecified (2) Anxiety disorder, unspecified (3) Intellectual disability (4) Dementia, vascular, with depression (5) Dementia, vascular, with delusions (6) Dementia in Alzheimer's disease with depression (7) Dementia in Alzheimer's disease with delusions (8) Dementia of the Alzheimer's type with early onset with behavioral disturbance (9) Major neurocognitive disorder RAMOS HORTA MD Oct 22, 2021 22:27
[2021-10-23 06:03] VITALS: BP 131/75
[2021-10-23] MEDS: metFORMIN 500 MG TABLET PO SCH ×2 (08:00→17:00)
[2021-10-23] MEDS: DULoxetine HCL 30 MG CAPSULE.DR PO SCH (08:42)
[2021-10-23] MEDS: LACTOBACILLUS RHAMNOSUS GG 1 CAPSULE. PO SCH ×2 (08:42→19:52)
[2021-10-23] MEDS: LISINOPRIL 20 MG TABLET PO SCH (08:43)
[2021-10-23] MEDS: DIVALPROEX 125 MG CAP.SPRINK PO SCH ×2 (08:43→17:00)
[2021-10-23 16:54] VITALS: BP 112/69
[2021-10-23] MEDS: ACETAMINOPHEN 325 MG TABLET PO PRN (19:53)
[2021-10-23] MEDS: ATORVASTATIN CALCIUM 20 MG TABLET PO SCH (19:53)
--- NOTE | 2021-10-23 21:51 | PDOC ---
Exam Note: Zana Note: Please also refer to the separate dictated note~for this date of service dictated separately.~Patient seen individually. Discussed the patient with Nursing staff reviewed the chart.~Reviewed interim history and current functioning. Reviewed vital signs,~Labs/ Radiology~and current medications noted below. Continue current treatment with the changes noted in the dictated addendum note Assessment: Vital Signs/I&O: Vital Signs Date Time Temp Pulse Resp B/P (MAP) Pulse Ox O2 Delivery O2 Flow Rate FiO2 10/23/21 16:54 97.8 101 14 112/69 (83) 95 Room Air I & O 10/22/21 10/22/21 10/23/21 15:00 23:00 07:00 Intake Total 600 ml 600 ml Balance 600 ml 600 ml Current Medications: Meds: Current Medications Medications (Trade) Dose Ordered Sig/Maeve Route PRN Reason Start Time Stop Time Status Last Admin Dose Admin Acetaminophen (Tylenol) 650 mg PRN Q6HRS PRN PO MILD PAIN / TEMP > 100.3'F 10/10/21 16:30 10/23/21 19:53 Multi-Ingredient Ointment (Analgesic Burney) 1 freeman PRN QID PRN TP MUSCLE PAIN 10/10/21 16:30 Al Hydroxide/Mg Hydroxide (Mylanta Plus Xs) 15 ml PRN AFTMEALHC PRN PO DYSPEPSIA 10/10/21 16:30 Magnesium Hydroxide (Milk Of Magnesia) 2,400 mg PRN QHS PRN PO CONSTIPATION 10/10/21 16:30 10/12/21 20:26 Divalproex Sodium (Depakote) 125 mg BID PO 10/10/21 21:00 10/11/21 16:59 DC 10/11/21 07:47 Lorazepam (Ativan) 1 mg PRN Q6HRS PRN PO ANXIETY 10/10/21 16:45 10/11/21 16:59 DC 10/11/21 14:02 Metformin HCl (Glucophage) 500 mg BIDWMEALS PO 10/10/21 17:00 10/23/21 17:00 Nystatin (Nystop) 1 freeman PRN Q12HR PRN TP RASH 10/10/21 16:45 Non-Formulary Medication (Dulaglutide (Trulicity)) 0.75 mg WEEKLY SQ 10/11/21 15:00 10/18/21 09:00 Lisinopril (Prinivil) 40 mg DAILY PO 10/11/21 09:00 10/23/21 08:43 Atorvastatin Calcium (Lipitor) 40 mg QHS PO 10/10/21 21:00 10/23/21 19:53 Divalproex Sodium (Depakote) 250 mg BID PO 10/11/21 21:00 10/20/21 13:58 DC 10/20/21 08:39 Lorazepam (Ativan) 0.5 mg QIDPRN PRN PO ANXIETY 10/11/21 17:00 10/19/21 09:18 Olanzapine (ZyPREXA ZYDIS) 2.5 mg PRN Q2HR PRN PO PSYCHOSIS 10/11/21 17:00 10/22/21 19:27 Duloxetine HCl (Cymbalta) 30 mg DAILY PO 10/13/21 09:00 10/23/21 08:42 Fentanyl (Duragesic 12mcg/ Hr) 1 patch Q3DAYS TD 10/13/21 17:00 10/22/21 08:14 Cefdinir (Omnicef) 300 mg BID PO 10/15/21 21:00 10/22/21 22:00 DC 10/22/21 19:23 Lactobacillus Rhamnosus (Culturelle) 1 cap BID PO 10/16/21 09:00 10/23/21 19:52 Divalproex Sodium (Depakote) 250 mg 0900,1700 PO 10/20/21 17:00 10/21/21 17:52 DC 10/21/21 17:17 Divalproex Sodium (Depakote Sprinkles) 250 mg 0900,1700 PO 10/22/21 09:00 10/22/21 20:34 DC 10/22/21 17:13 Divalproex Sodium (Depakote Sprinkles) 375 mg 0900,1700 PO 10/23/21 09:00 10/23/21 17:00 Current Medications Medications (Trade) Dose Ordered Sig/Maeve Route PRN Reason Start Time Stop Time Status Last Admin Dose Admin Divalproex Sodium (Depakote Sprinkles) 375 mg 0900,1700 PO 10/23/21 09:00 10/23/21 17:00 I have reviewed the current psychotropics carefully including drug interactions. Risk benefit ratio favors no change other than as noted in my dictated progress note. Diagnosis: Problems: (1) Impulse control disorder, unspecified (2) Anxiety disorder, unspecified (3) Intellectual disability (4) Dementia, vascular, with depression (5) Dementia, vascular, with delusions (6) Dementia in Alzheimer's disease with depression (7) Dementia in Alzheimer's disease with delusions (8) Major neurocognitive disorder RAMOS HORTA MD Oct 23, 2021 21:51
[2021-10-24 06:32] VITALS: BP 116/76
[2021-10-24] MEDS: LACTOBACILLUS RHAMNOSUS GG 1 CAPSULE. PO SCH (08:09)
[2021-10-24] MEDS: DULoxetine HCL 30 MG CAPSULE.DR PO SCH (08:09)
[2021-10-24] MEDS: metFORMIN 500 MG TABLET PO SCH (08:09)
[2021-10-24 08:10] VITALS: BP 116/76
[2021-10-24] MEDS: DIVALPROEX 125 MG CAP.SPRINK PO SCH (08:10)
[2021-10-24] MEDS: LISINOPRIL 20 MG TABLET PO SCH (08:10)
--- NOTE | 2021-10-24 08:14 | PDOC ---
Exam Note: Zana Note: This note is a late entry for 10/22/2021 covers elements not covered in my initial note. Subjective: The patient was seen individually on 10/22/2021, discussed and reviewed the chart with Tiarra SOTO. The patient slept 6-1/4 hours previous night. Overall she remains confused, little more interactive but around 6 p.m. she was yelling out meow, meow. Asmita SOTO sat with her for awhile and she was calmer. Later she was yelling out hey lady. Received Zyprexa at 7.30 p.m. Review of Systems: Ambulation impaired, in wheelchair. No CV, , pulmonary, eye, ENT system symptoms on review. Mental Status Exam: The patient is oriented to herself. Insight and judgment, recent and remote memory, attention and concentration, fund of knowledge is poor consistent with her diagnoses. Laboratory Data: Reviewed. Impression: Major neurocognitive disorder, Alzheimer, vascular with delusion, depression, behavioral disturbance. Anxiety disorder unspecified. Impulse control disorder unspecified. Intellectual disability. Plan: Maintain rest of the psychotropics for now. Reviewed drug interactions, risk-benefit ratio. Adjust further as clinically indicated. Valproic acid level is subtherapeutic at 40. Given her ongoing mood lability, we will increase from 250 mg b.i.d. to 375 mg b.i.d. Check CBC, CMP, valproic acid lev el, ammonia level in 3 days. Assessment: Vital Signs/I&O: Vital Signs Date Time Temp Pulse Resp B/P (MAP) Pulse Ox O2 Delivery O2 Flow Rate FiO2 10/24/21 08:10 94 116/76 10/24/21 06:32 97.8 18 94 10/23/21 16:54 Room Air I & O 10/23/21 10/23/21 10/24/21 15:00 23:00 07:00 Intake Total 120 ml 420 ml 100 ml Balance 120 ml 420 ml 100 ml Current Medications: Meds: Current Medications Medications (Trade) Dose Ordered Sig/Maeve Route PRN Reason Start Time Stop Time Status Last Admin Dose Admin Divalproex Sodium (Depakote Sprinkles) 375 mg 0900,1700 PO 10/23/21 09:00 10/24/21 08:10 I have reviewed the current psychotropics carefully including drug interactions. Risk benefit ratio favors no change other than as noted in my dictated progress note. Diagnosis: Problems: (1) Impulse control disorder, unspecified (2) Anxiety disorder, unspecified (3) Intellectual disability (4) Dementia, vascular, with depression (5) Dementia, vascular, with delusions (6) Dementia in Alzheimer's disease with depression (7) Dementia in Alzheimer's disease with delusions (8) Dementia of the Alzheimer's type with early onset with behavioral disturbance (9) Major neurocognitive disorder RAMOS HORTA MD Oct 24, 2021 08:14
--- NOTE | 2021-10-24 08:33 | PDOC ---
Exam Note: Zana Note: This note is a late entry for 10/23/2021 covers elements not covered in my initial note. Subjective: The patient was seen individually on 10/23/2021, discussed and reviewed the chart with Henny SOTO. The patient slept 7-1/2 hours previous night. Overall, she has had some intermittent yelling, does complain of pain left breast area. She received Tylenol. I met with her in the dayroom. She sat in a wheelchair with her soft toy on her lap. Review of Systems: Ambulation impaired, in wheelchair. No CV, , pulmonary, eye, ENT system symptoms on review. Mental Status Exam: The patient is oriented to herself. Insight and judgment, recent and remote memory, attention and concentration, fund of knowledge is poor consistent with her diagnoses. Laboratory Data: Reviewed. Impression: Major neurocognitive disorder, Alzheimer, vascular with delusion, depression, behavioral disturbance. Anxiety disorder unspecified. Impulse control disorder unspecified. Intellectual disability. Plan: Maintain rest of the psychotropics for now. Reviewed drug interactions, risk-benefit ratio. Adjust further as clinically indicated. Assessment: Vital Signs/I&O: Vital Signs Date Time Temp Pulse Resp B/P (MAP) Pulse Ox O2 Delivery O2 Flow Rate FiO2 10/24/21 08:10 94 116/76 10/24/21 06:32 97.8 18 94 10/23/21 16:54 Room Air I & O 10/23/21 10/23/21 10/24/21 15:00 23:00 07:00 Intake Total 120 ml 420 ml 100 ml Balance 120 ml 420 ml 100 ml Current Medications: Meds: Current Medications Medications (Trade) Dose Ordered Sig/Maeve Route PRN Reason Start Time Stop Time Status Last Admin Dose Admin Divalproex Sodium (Depakote Sprinkles) 375 mg 0900,1700 PO 10/23/21 09:00 10/24/21 08:10 I have reviewed the current psychotropics carefully including drug interactions. Risk benefit ratio favors no change other than as noted in my dictated progress note. Diagnosis: Problems: (1) Impulse control disorder, unspecified (2) Anxiety disorder, unspecified (3) Intellectual disability (4) Dementia, vascular, with depression (5) Dementia, vascular, with delusions (6) Dementia in Alzheimer's disease with depression (7) Dementia in Alzheimer's disease with delusions (8) Dementia of the Alzheimer's type with early onset with behavioral disturbance (9) Major neurocognitive disorder RAMOS HORTA MD Oct 24, 2021 08:33
[2021-10-24] MEDS: ACETAMINOPHEN 325 MG TABLET PO PRN (08:47)
[2021-10-24] MEDS: LORazepam 1 MG TABLET PO PRN (08:47)
[2021-10-24] MEDS ORDERED: METH99.2 TP (11:20)
[2021-10-24] MEDS ORDERED: FENT-73 TP (11:21)
[2021-10-24] MEDS ORDERED: ACET325T21 PO (11:22)
[2021-10-24] MEDS ORDERED: DIVA125C3 PO (11:28)
[2021-10-24] MEDS ORDERED: DULO30CA2 PO (11:30)
[2021-10-24] MEDS ORDERED: OLAN5TAB7 PO (11:32)
[2021-10-24] MEDS ORDERED: LORA-254 PO (11:34)
[2021-10-24] MEDS ORDERED: MAG-124 PO (11:37)
[2021-10-24] MEDS ORDERED: MAGN24003 PO (11:38)
[2021-10-24] MEDS ORDERED: LACT1CAP6 PO (11:39)
[2021-10-24] MEDS ORDERED: LACT1CAP19 PO (11:41)
[2021-10-24] MEDS ORDERED: ATOR40TA PO ×3 (11:46→12:55)
--- NOTE | 2021-10-24 21:56 | PDOC ---
Exam Note: Zana Note: Please also refer to the separate dictated note~for this date of service dictated separately.~Patient seen individually. Discussed the patient with Nursing staff reviewed the chart.~Reviewed interim history and current functioning. Reviewed vital signs,~Labs/ Radiology~and current medications noted below. Continue current treatment with the changes noted in the dictated addendum note Assessment: Vital Signs/I&O: Vital Signs Date Time Temp Pulse Resp B/P (MAP) Pulse Ox O2 Delivery O2 Flow Rate FiO2 10/24/21 08:10 94 116/76 10/24/21 06:32 97.8 18 94 10/23/21 16:54 Room Air I & O 10/23/21 10/23/21 10/24/21 15:00 23:00 07:00 Intake Total 120 ml 420 ml 100 ml Balance 120 ml 420 ml 100 ml Current Medications: Meds: Current Medications Medications (Trade) Dose Ordered Sig/Maeve Route PRN Reason Start Time Stop Time Status Last Admin Dose Admin Acetaminophen (Tylenol) 650 mg PRN Q6HRS PRN PO MILD PAIN / TEMP > 100.3'F 10/10/21 16:30 10/24/21 15:56 DC 10/24/21 08:47 Multi-Ingredient Ointment (Analgesic Senath) 1 freeman PRN QID PRN TP MUSCLE PAIN 10/10/21 16:30 10/24/21 15:56 DC Al Hydroxide/Mg Hydroxide (Mylanta Plus Xs) 15 ml PRN AFTMEALHC PRN PO DYSPEPSIA 10/10/21 16:30 10/24/21 15:56 DC Magnesium Hydroxide (Milk Of Magnesia) 2,400 mg PRN QHS PRN PO CONSTIPATION 10/10/21 16:30 10/24/21 15:56 DC 10/12/21 20:26 Divalproex Sodium (Depakote) 125 mg BID PO 10/10/21 21:00 10/11/21 16:59 DC 10/11/21 07:47 Lorazepam (Ativan) 1 mg PRN Q6HRS PRN PO ANXIETY 10/10/21 16:45 10/11/21 16:59 DC 10/11/21 14:02 Metformin HCl (Glucophage) 500 mg BIDWMEALS PO 10/10/21 17:00 10/24/21 15:56 DC 10/24/21 08:09 Nystatin (Nystop) 1 freeman PRN Q12HR PRN TP RASH 10/10/21 16:45 10/24/21 15:56 DC Non-Formulary Medication (Dulaglutide (Trulicity)) 0.75 mg WEEKLY SQ 10/11/21 15:00 10/24/21 15:56 DC 10/18/21 09:00 Lisinopril (Prinivil) 40 mg DAILY PO 10/11/21 09:00 10/24/21 15:56 DC 10/24/21 08:10 Atorvastatin Calcium (Lipitor) 40 mg QHS PO 10/10/21 21:00 10/24/21 15:56 DC 10/23/21 19:53 Divalproex Sodium (Depakote) 250 mg BID PO 10/11/21 21:00 10/20/21 13:58 DC 10/20/21 08:39 Lorazepam (Ativan) 0.5 mg QIDPRN PRN PO ANXIETY 10/11/21 17:00 10/24/21 15:56 DC 10/24/21 08:47 Olanzapine (ZyPREXA ZYDIS) 2.5 mg PRN Q2HR PRN PO PSYCHOSIS 10/11/21 17:00 10/24/21 15:56 DC 10/22/21 19:27 Duloxetine HCl (Cymbalta) 30 mg DAILY PO 10/13/21 09:00 10/24/21 15:56 DC 10/24/21 08:09 Fentanyl (Duragesic 12mcg/ Hr) 1 patch Q3DAYS TD 10/13/21 17:00 10/24/21 15:56 DC 10/22/21 08:14 Cefdinir (Omnicef) 300 mg BID PO 10/15/21 21:00 10/22/21 22:00 DC 10/22/21 19:23 Lactobacillus Rhamnosus (Culturelle) 1 cap BID PO 10/16/21 09:00 10/24/21 15:56 DC 10/24/21 08:09 Divalproex Sodium (Depakote) 250 mg 0900,1700 PO 10/20/21 17:00 10/21/21 17:52 DC 10/21/21 17:17 Divalproex Sodium (Depakote Sprinkles) 250 mg 0900,1700 PO 10/22/21 09:00 10/22/21 20:34 DC 10/22/21 17:13 Divalproex Sodium (Depakote Sprinkles) 375 mg 0900,1700 PO 10/23/21 09:00 10/24/21 15:56 DC 10/24/21 08:10 I have reviewed the current psychotropics carefully including drug interactions. Risk benefit ratio favors no change other than as noted in my dictated progress note. Diagnosis: Problems: (1) Impulse control disorder, unspecified (2) Anxiety disorder, unspecified (3) Intellectual disability (4) Dementia, vascular, with depression (5) Dementia, vascular, with delusions (6) Dementia in Alzheimer's disease with depression (7) Dementia in Alzheimer's disease with delusions (8) Dementia of the Alzheimer's type with early onset with behavioral disturbance (9) Major neurocognitive disorder RAMOS HORTA MD Oct 24, 2021 21:56
--- NOTE | 2021-10-25 00:25 | DS ---
DATE OF DISCHARGE: 10/24/2021 DISCHARGE SUMMARY/PSYCHIATRIC PROGRESS NOTE This note covers the elements not covered in my initial note, 10/24/2021. REASON FOR ADMISSION: Please refer to the admission history for details. Briefly, the patient is a 76-year-old female referred to us from [facility] in [place], [place] on account of worsening confusion, delusions, wanting to go on an ambulance ride, combative, screaming for help, disruptive to the unit, anxious. Reportedly, peers were now threatening her because she would not "shut up" She is restless, agitated, does have intellectual disability. Appeared psychotic with worsening mood swings, resulting in this referral for admission. SIGNIFICANT FINDINGS AND CLINICAL COURSE: Following admission, the patient was seen daily individually by myself from a psychiatric standpoint, medical followup, Dr. Stearns/Dr. Goss. The patient was extremely agitated, yelling, screaming, paranoid, delusional and overall functioning consistent with her intellectual disability. Adjustments were made in her psychotropics and she seemed to respond to a combination of Depakote sprinkles 375 mg 0900, 1700. Ativan p.r.n., Zyprexa p.r.n., Cymbalta 30 mg a day. Yelling was much improved. Prior to discharge, she was still functioning consistent with her intellectual disability. Delusions appear to have subsided. REVIEW OF SYSTEMS: Prior to discharge, ambulation impaired. No CV, , pulmonary, eye, ENT system symptoms on review. Reliability poor. MENTAL STATUS EXAMINATION: Oriented to herself. Insight, judgment, recent and remote memory, attention, concentration, fund of knowledge poor consistent with her diagnoses. FINAL DIAGNOSES: Major neurocognitive disorder, Alzheimer, vascular with delusion, depression, behavioral disturbance, intellectual disability status post urinary tract infection. Rest unchanged from admission. DISCHARGE MEDICATIONS: Please refer to the MRAD. DISCHARGE INSTRUCTIONS: Outpatient psychiatric and medical followup at the senior living. Time for discharge day management greater than [address]: Phil TID: [id number]
== END 2021-10-24 15:30 | DRG 57 ==
LOC: GEROPSY 15:42
PROVIDERS: ADMIT Psychiatry & Neurology Psychiatry; ATTEND Psychiatry & Neurology Psychiatry
DX: G30.9 Alzheimer's disease, unspecified (principal); F02.81 Dementia in other diseases classified elsewhere, unspecified severity, with behavioral disturbance; F79 Unspecified intellectual disabilities; N39.0 Urinary tract infection, site not specified; F01.51 Vascular dementia, unspecified severity, with behavioral disturbance; F63.9 Impulse disorder, unspecified; E11.9 Type 2 diabetes mellitus without complications; E78.5 Hyperlipidemia, unspecified; F32.9 Major depressive disorder, single episode, unspecified; F41.9 Anxiety disorder, unspecified; I10 Essential (primary) hypertension; Z66 Do not resuscitate; K59.09 Other constipation; Z20.822 Contact with and (suspected) exposure to COVID-19; Z79.899 Other long term (current) drug therapy
CPT/HCPCS: 36415; 71045; 71100; 74018; 80053; 80061; 80164; 81001; 82140; 82306; 82947; 83036; 83540; 83550; 83735; 84436; 84443; 84480; 85025; 85379; 86592; 87077; 87086; 87186; 93005; 97116; 97530